=== PATIENT | female | born 1985 | race Caucasian/White ===

== ENCOUNTER 2020-08-03 11:40 | Outpatient (REF) | payer OTHER, SELFPAY ==
[2020-08-03 13:44] LABS: Alanine Aminotransferase 41 U/L (0-31); Albumin Level 4.7 g/dL (3.5-5.0); Alkaline Phosphatase 54 U/L (39-117); Anion Gap 13 (12-20); Aspartate Amino Transferase 22 U/L (5-31); Bilirubin Total 0.4 mg/dL (0.0-1.0); Blood Urea Nitrogen 15 mg/dL (9-16); Calcium 9.7 mg/dL (8.4-10.2); Carbon Dioxide 27 mmol/L (22-29); Chloride 106 mmol/L (96-108); Estimated Glomerular Filt Rate > 60; Glucose Random 81 mg/dL (60-115); Potassium 4.3 mmol/l (3.3-5.1); Sodium 142 mmol/L (135-145); Total Protein 7.8 g/dL (6.5-8.0)
[2020-08-04 08:13] LABS: HBS Num1 58.35 mIU/mL (0-7.99); HBc Num1 0.11 S/CO (0.00-0.79); HBsAGNum1 0.25 S/CO (0.00-0.99); Hepatitis A Antibody IgM 0.18 Index (0-0.79); Hepatitis B Core Antibody Nonreactive (Nonreactive); Hepatitis B Surface Antigen Negative (Negative); ~HepC Num1 0.08 S/CO (0.00-0.79); ~Hepatitis A Antibody IgM Nonreactive (Nonreactive); ~Hepatitis B Surface Antibody REACTIVE (Nonreactive); ~Hepatitis C Antibody Nonreactive (Nonreactive)
== END 2020-08-03 11:41 | disposition home or self-care (01) ==
LOC: HO.LAB 11:40
PROVIDERS: PCP Internal Medicine; Visit Provider Internal Medicine
DX: N30.00 Acute cystitis without hematuria (principal); R74.01 Elevation of levels of liver transaminase levels
CPT/HCPCS: 80053; 86704; 86706; 86709; 86803; 87086; 87088; 87186; 87340

== ENCOUNTER 2020-09-30 09:46 | Outpatient (REF) | payer OTHER, SELFPAY ==
--- NOTE | 2020-09-30 09:45 | EMG_ITS ---
Bilateral median and ulnar motor and sensory studies were performed. Bilateral radial sensory studies were performed and paraspinal muscles were tested. IMPRESSION: [id number] bilateral median neuropathy across carpal tunnel. MD AYDEN Pichardo/LUIS / [id number]
== END 2020-09-30 09:47 | disposition home or self-care (01) ==
LOC: HO.NEURO 09:46
PROVIDERS: Visit Provider Internal Medicine
DX: G56.03 Carpal tunnel syndrome, bilateral upper limbs (principal)
CPT/HCPCS: 95860; 95886; 95911

== ENCOUNTER 2021-03-18 09:13 | Outpatient (REF) | payer OTHER, SELFPAY ==
[2021-03-18 10:36] LABS: MANUAL DIFF FLAG NO
[2021-03-18 11:02] LABS: Basophils Percent Auto 0.4 % (0-2); Eosinophils Absolute Auto 0.2 X10*3/uL (0.0-0.4); Eosinophils Percent Auto 3.2 % (0-4); Hematocrit 38.9 % (37-47); Imm Gran Abs Auto 0.02 X10*3/uL (0.00-0.03); Imm Gran Pct Auto 0.3 % (0.0-0.4); Lymphocytes Absolute Auto 2.5 X10*3/uL (1.2-4.9); Lymphocytes Percent Auto 36.5 % (20-40); Mean Corpuscular HGB Conc 33.4 g/dl (31.0-35.0); Mean Corpuscular Hemoglobin 29.6 pg (27.0-33.0); Mean Corpuscular Volume 88.6 fL (80-98); Mean Platelet Volume 10.9 fL (9.4-12.3); Monocytes Absolute Auto 0.6 X10*3/uL (0.1-1.2); Monocytes Percent Auto 8.2 % (2-11); Neutrophils Absolute Auto 3.6 X10*3/uL (2.0-8.3); Neutrophils Percent Auto 51.4 % (45-73); Platelet Count 251 X10*3/uL (160-400); Red Blood Count 4.39 X10*6/uL (4.20-5.50); Red Cell Distribution Width 12.5 % (11.0-16.0)
[2021-03-18 11:06] LABS: Alanine Aminotransferase 71 U/L (0-31); Albumin Level 4.5 g/dL (3.5-5.0); Alkaline Phosphatase 49 U/L (39-117); Anion Gap 12 (12-20); Aspartate Amino Transferase 29 U/L (5-31); Bilirubin Total 0.4 mg/dL (0.0-1.0); Blood Urea Nitrogen 12 mg/dL (9-16); Calcium 9.6 mg/dL (8.4-10.2); Carbon Dioxide 24 mmol/L (22-29); Chloride 110 mmol/L (96-108); Cholesterol 154 mg/dL; Estimated Glomerular Filt Rate > 60; Glucose Random 90 mg/dL (60-115); HDL Cholesterol 61 mg/dL; LDL Cholesterol Calculated 85 mg/dl; Potassium 4.4 mmol/L (3.3-5.1); Sodium 142 mmol/L (135-145); Total Protein 7.5 g/dL (6.5-8.0); Triglycerides 44 mg/dL
[2021-03-19 09:06] LABS: Lyme Abs Screen <0.90 index
== END 2021-03-18 09:14 | disposition home or self-care (01) ==
LOC: HO.LAB 09:13
PROVIDERS: PCP Internal Medicine; Visit Provider Internal Medicine
DX: L53.2 Erythema marginatum (principal); R21 Rash and other nonspecific skin eruption
CPT/HCPCS: 36415; 80053; 80061; 85025; 86617; 86618

== ENCOUNTER 2022-04-20 10:40 | Outpatient (REF) | payer OTHER, SELFPAY ==
[2022-04-20 11:40] LABS: Estimated Average Glucose 85 mg/dL; Hemoglobin A1c % 4.6 %
[2022-04-20 12:16] LABS: Alanine Aminotransferase 122 U/L (0-31); Albumin Level 4.7 g/dL (3.5-5.0); Alkaline Phosphatase 59 U/L (39-117); Anion Gap 15 (12-20); Aspartate Amino Transferase 52 U/L (5-31); Bilirubin Total 0.6 mg/dL (0.0-1.0); Blood Urea Nitrogen 12 mg/dL (9-16); Calcium 9.7 mg/dL (8.4-10.2); Carbon Dioxide 24 mmol/L (22-29); Chloride 108 mmol/L (96-108); Estimated Glomerular Filt Rate > 60; Glucose Random 98 mg/dL (60-115); Potassium 4.5 mmol/L (3.3-5.1); Sodium 142 mmol/L (135-145); Total Protein 7.9 g/dL (6.5-8.0)
[2022-04-20 12:20] LABS: Thyroid Stimulating Hormone 1.39 uIU/mL (0.32-4.0)
[2022-04-20 14:21] LABS: CT PCR NOT DETECTED (Not Detect.); NG PCR NOT DETECTED (Not Detect.)
== END 2022-04-20 10:41 | disposition home or self-care (01) ==
LOC: HO.LAB 10:40
PROVIDERS: PCP Internal Medicine; Visit Provider Internal Medicine
DX: Z11.3 Encounter for screening for infections with a predominantly sexual mode of transmission (principal); E66.8 Other obesity; Z68.41 Body mass index [BMI] 40.0-44.9, adult; N30.00 Acute cystitis without hematuria
CPT/HCPCS: 80053; 83036; 84443; 87491; 87591

== ENCOUNTER 2022-10-30 09:54 | Outpatient (REF) | payer OTHER, SELFPAY ==
[2022-10-30 10:51] LABS: MANUAL DIFF FLAG NO
[2022-10-30 12:06] LABS: Basophils Absolute Auto 0.1 X10*3/uL (0.0-0.2); Basophils Percent Auto 0.6 % (0-2); Eosinophils Absolute Auto 0.1 X10*3/uL (0.0-0.4); Eosinophils Percent Auto 1.4 % (0-4); Hematocrit 40.9 % (37.0-47.0); Hemoglobin 13.9 g/dl (12.0-16.0); Imm Gran Abs Auto 0.01 X10*3/uL (0.00-0.03); Imm Gran Pct Auto 0.1 % (0.0-0.4); Lymphocytes Absolute Auto 3.7 X10*3/uL (1.2-4.9); Lymphocytes Percent Auto 47.4 % (20-40); Mean Corpuscular Hemoglobin 29.8 pg (27.0-33.0); Mean Corpuscular Volume 87.6 fL (80.0-98.0); Mean Platelet Volume 11.1 fL (9.4-12.3); Monocytes Absolute Auto 0.6 X10*3/uL (0.1-1.2); Monocytes Percent Auto 7.7 % (2-11); Neutrophils Absolute Auto 3.4 x10*3/uL (2.0-8.3); Neutrophils Percent Auto 42.8 % (45-73); Platelet Count 284 X10*3/uL (160-400); Red Blood Count 4.67 X10*6/uL (4.20-5.50); Red Cell Distribution Width 12.8 % (11.0-16.0); White Blood Count 7.8 X10*3/uL (4.8-10.8)
[2022-10-30 12:44] LABS: Alanine Aminotransferase 52 U/L (0-31); Albumin Level 4.6 g/dL (3.5-5.0); Alkaline Phosphatase 58 U/L (39-117); Anion Gap 15 (12-20); Aspartate Amino Transferase 27 U/L (5-31); Bilirubin Total 0.5 mg/dL (0.0-1.0); Blood Urea Nitrogen 14 mg/dL (9-16); Calcium 9.9 mg/dL (8.4-10.2); Carbon Dioxide 25 mmol/L (22-29); Chloride 107 mmol/L (96-108); Cholesterol 186 mg/dL; Estimated Glomerular Filt Rate > 60; Glucose Random 86 mg/dL (60-115); HDL Cholesterol 71 mg/dL; LDL Cholesterol Calculated 105 mg/dl; Potassium 4.6 mmol/L (3.3-5.1); Sodium 142 mmol/L (135-145); Total Protein 7.2 g/dL (6.5-8.0); Triglycerides 53 mg/dL
[2022-10-30 13:01] LABS: Thyroid Stimulating Hormone 1.36 uIU/mL (0.32-4.0)
[2022-10-31 10:19] LABS: CA-125 <3 U/mL (<35)
== END 2022-10-30 09:55 | disposition home or self-care (01) ==
LOC: HO.LAB 09:54
PROVIDERS: PCP Internal Medicine; Visit Provider Internal Medicine
DX: M54.89 Other dorsalgia (principal); Z85.40 Personal history of malignant neoplasm of unspecified female genital organ
CPT/HCPCS: 36415; 80053; 80061; 84443; 85025; 86304

== ENCOUNTER 2024-12-11 10:31 | Emergency (ER) | payer OTHER, SELFPAY ==
--- NOTE | ~2024-12-11 | CT_ITS ---
EXAMINATION: CT ABDOMEN AND PELVIS WITHOUT CONTRAST CLINICAL INFORMATION: Left flank pain. COMPARISON: June 29, 2017. TECHNIQUE: Multidetector volumetric imaging was performed from the superior aspect of the liver through the pubic symphysis. Sagittal and coronal reformatted images were obtained on the technologist's workstation. This CT examination was performed using dose optimization techniques as appropriate, variously including the following: *Automated exposure control *Adjustment of mA and/or kV according to patient size (this includes techniques or standardized protocols for targeted exams where dose is matched to indication/reason for exam; i.e. extremities or head) *Use of iterative reconstruction technique. DLP: 624 mGy centimeter. FINDINGS: Limited evaluation of the intra-abdominal organs and vascular structures due to lack of IV contrast. LUNG BASES: No acute airspace disease. Nonspecific 2 mm pulmonary nodules in the periphery of the left lower lung lobe. LIVER, GALLBLADDER, AND BILIARY TREE: Liver measures 17 cm. No pericholecystic fluid collection or gallbladder wall thickening. No intrahepatic or extrahepatic biliary ductal dilatation.. PANCREAS: No peripancreatic fluid collections. No main pancreatic ductal dilatation. SPLEEN: 9 cm. ADRENAL GLANDS: No nodular lesions. KIDNEYS AND URETERS: No hydronephrosis. No nephrolithiasis. BLADDER: Fluid-filled nearly collapsed. GASTROINTESTINAL TRACT: Abundant stool. No intestinal obstruction pattern. No pneumatosis intestinalis. No pneumoperitoneum. No ascites. I do not see the appendix, though no edema pattern in the mesocecum. ABDOMINAL WALL: No gross umbilical hernia. LYMPH NODES: No lymphadenopathy, retroperitoneal. VASCULAR: No aneurysm, abdominal aorta. PELVIC VISCERA: Inadequate evaluation. OSSEOUS STRUCTURES: Multilevel thoracolumbar spondylosis. Levoconvex curvature of the lower lumbar spine apex at L4. Calcifications in the posterior intervertebral discs L4-5. Spina bifida occulta, S1. CT/CT abdomen pelvis wo IV con IMPRESSION: No hydronephrosis or nephrolithiasis. Multilevel thoracolumbar spondylosis. Hepatomegaly, mild. Fleischner guidelines were followed. Electronically signed by: Aime Randall MD 12/11/2024 01:38 PM EDT
[2024-12-11 10:48] VITALS: BP 118/71; PULSE 63; RESP 16; TEMP 36.6; O2SAT 95; BMI 36.8
--- NOTE | 2024-12-11 10:48 | ED_ITS ---
HPI - General Adult General Chief complaint: Abdominal Pain Stated complaint: abd pain hx ovarian cancer Time Seen by Provider: 12/11/24 12:43 Source: patient Mode of arrival: ambulatory Limitations: no limitations History of Present Illness ED Provider: LILA CARPIO PA-C HPI narrative: 39 year old female with pmhx significant for ovarian cancer s/p oophorectomy and chemo in 2000 presents to the ED today for evaluation of left flank pain radiating to her left lower abdomen x1 week. Pain is 6/10 at present. She has been taking Aleve with improvement. Last dose around 0600 this morning. Admits to intermittent loose stools and constipation. Reports occasional nausea without vomiting. No nausea at present. She is eating on my entrance into room. No injury/ trauma to the back or abdomen. No recent travel outside the [place]. 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 Her last PET scan was a little over 1 year ago and was normal. Denies fever, chills, chest pain, sob, vomiting, melena/ hematochezia, dysuria, hematuria, constipation. Other than oophorectomy, no other abdominal surgeries. Related Data Allergies Allergy/AdvReac Type Severity Reaction Status Date / Time No Known Allergies Allergy Verified 12/11/24 10:51 Review of Systems 2 Review of Systems: Yes all other systems are reviewed and are negative PMFSH Past Medical History Attestation statement: The following information was validated with the patient. Source: old records reviewed and nursing notes reviewed Social History Social History Unable to assess alcohol history related to: Unknown Physical Exam ED Vital Signs: Vital Signs - 24 hr 12/11/24 10:48 Temperature 97.9 F Pulse Rate 63 Respiratory Rate 16 Blood Pressure 118/71 Pulse Oximetry 95 Oxygen Delivery Method Room Air BMI result Body Mass Index 36.8 vital signs stable, afebrile General: Well appearing, in no acute distress. Skin: Warm, dry, intact. No rashes or lesions. Head: Normocephalic, atraumatic. EENT: Hearing is intact b/l. Conjunctiva clear. PERRLA. EOM intact. Moist mucous membranes.? Neck: Supple without LAD Cardiac: Chest wall symmetric. RRR. Lungs: Normal respiratory effort without accessory muscle use. CTA bilaterally Abdomen: obese abdomen, nondistended, nontender to palpation, no rebound or guarding. no cvat. Back: No midline spinous or paraspinal tenderness. No step off deformity. Neuro: AOx3. Normal speech. Ambulating with steady gait. Course Course Course Narrative: This is a rapid medical exam performed by Marilee Lawrence NP: Additional HPI, ROS, PE not included below will be deferred to primary provider. Patient is a 39-year-old female with history of ovarian CA with bilateral oopherectomy presenting with left sided abdominal pain and left flank pain since . Also reports irregular bowel movements and nausea. Denies urinary symptoms. Plan: labs, UA Reevaluation(s) Reevaluation #1: CBC without leukocytosis or left shift. no anemia, h&h stable. chemistry without acute electrolyte abnormality requiring intervention. No LOYD. Liver function normal. ua without infection/ blood. CT abdomen pelvis wo IV con IMPRESSION: No hydronephrosis or nephrolithiasis. Multilevel thoracolumbar spondylosis. Hepatomegaly, mild. Pain improved with toradol. well appearing. tolerating PO. advised to f/u with PCP. Patient has remained stable throughout ED visit today. Discussed worrisome signs and symptoms and when to return to the ED. All questions answered at this time. Patient is agreeable with disposition and stable for discharge. Medications Administered Discontinued Medications Generic Name Dose Route Start Last Admin Trade Name Freq PRN Reason Stop Dose Admin Ketorolac Tromethamine 30 mg 12/11/24 13:11 12/11/24 13:24 Ketorolac Tromethamine 30 Mg/Ml Vial IM 12/11/24 13:12 30 mg ONCE ONE Administration Medical Decision Making Medical Decision Making [facility] Narrative: 39 year old female with pmhx significant for ovarian cancer s/p oophorectomy and chemo in 2000 presents to the ED today for evaluation of left flank pain radiating to her left lower abdomen x1 week. vital signs stable. afebrile. she is nontoxic appearing and in NAD. on exam, obese abdomen, nondistended, nontender, no rebound or guarding. normoactive bs x4. no cvat. Differential diagnosis includes, IBS, IBD, uti, renal colic, nephrolithiasis, gastroenteritis, gastritis, PUD, divertuculosis/ diverticulitis, constipation. Abdominal exam without peritoneal signs. No evidence of acute abdomen at this time. Well appearing. Moderate suspicion for acute hepatobiliary disease (including acute cholecystitis). Less likely to represent acute pancreatitis, perforated ulcer/ GI bleed, acute infectious processes (pneumonia, hepatitis, pyelonephritis), atypical appendicitis, vascular catastrophe, bowel obstruction or viscus perforation. Presentation not consistent with other acute, emergent causes of abdominal pain at this time. Plan for labs, UA, CT a/p, pain control, re-evaluation. Differential Diagnosis Differential Diagnoses: The differential diagnosis associated with the presentation includes as above. Admission/Observation not indicated. Lab Data MDM Lab Attestation statement: I reviewed the patient's lab results. as above. 12/11/24 11:16 12/11/24 11:16 Labs: Lab Results 12/11/24 12/11/24 Range/Units 11:16 13:24 WBC 7.3 (4.8-10.8) X10*3/uL RBC 4.47 (4.20-5.50) X10*6/uL Hgb 13.4 (12.0-16.0) g/dl Hct 38.8 (37.0-47.0) % MCV 86.8 (80.0-98.0) fL MCH 30.0 (27.0-33.0) pg MCHC 34.5 (31.0-35.0) g/dl RDW 12.5 (11.0-16.0) % Plt Count 272 (160-400) X10*3/uL MPV 10.4 (9.4-12.3) fL Immature Gran % (Auto) 0.3 (0.0-0.4) % Neut % (Auto) 47.0 (45-73) % Lymph % (Auto) 41.6 H (20-40) % [place] % (Auto) 8.0 (2-11) % Eos % (Auto) 2.3 (0-4) % Baso % (Auto) 0.8 (0-2) % Lymph # (Auto) 3.0 (1.2-4.9) X10*3/uL [place] # (Auto) 0.6 (0.1-1.2) X10*3/uL Eos # (Auto) 0.2 (0.0-0.4) X10*3/uL Baso # (Auto) 0.1 (0.0-0.2) X10*3/uL Abs Immat Gran (auto) 0.02 (0.00-0.03) X10*3/uL Absolute Neuts (auto) 3.4 (2.0-8.3) x10*3/uL Absolute Nucleated RBC 0.000 (0.0-0.012) X10*3/uL Nucleated RBC % (auto) 0.0 (0.0-0.2) /100WBC Sodium 143 (135-145) mmol/L Potassium 3.7 (3.3-5.1) mmol/L Chloride 110 H (96-108) mmol/L Carbon Dioxide 28 (22-29) mmol/L Anion Gap 9 L (12-20) BUN 13 (9-16) mg/dL Creatinine 0.68 (0.5-1.4) mg/dL Estim Creat Clear Calc 123.7 Estimated GFR > 60 Random Glucose 85 (60-115) mg/dL Calcium 9.6 (8.4-10.2) mg/dL Total Bilirubin 0.3 (0.0-1.0) mg/dL AST 16 (5-31) U/L ALT 17 (0-31) U/L Alkaline Phosphatase 66 (39-117) U/L Total Protein 7.2 (6.5-8.0) g/dL Albumin 4.4 (3.5-5.0) g/dL Urine Color Yellow Urine Appearance Clear Urine pH 5.5 (5.0-9.0) Ur Specific [place] 1.015 (1.005-1.025) Urine Protein Negative (Neg-Trace) mg/dL Urine Glucose (UA) Negative (Negative) mg/dL Urine Ketones Negative (Negative) mg/dL Urine Blood Negative (Negative) Urine Nitrite Negative (Negative) Ur Leukocyte Esterase Negative (Negative) Independent Interpretation I performed an independent interpretation of an: CT Scan Interpretation: CT a/p with stool throughout the colon, no obstruction. Radiology Impression Discussion of test interpretation with radiology: I have reviewed the radiologist's reading. Radiologist Impression: Procedure(s): CT abdomen pelvis wo IV con Accession Number(s): [id number] cc: Soraya Su MD; Lila Carpio~ Report Number: [id number]: Total DLP = 624.00 mGy-cm EXAMINATION: CT ABDOMEN AND PELVIS WITHOUT CONTRAST CLINICAL INFORMATION: Left flank pain. COMPARISON: June 29, 2017. TECHNIQUE: Multidetector volumetric imaging was performed from the superior aspect of the liver through the pubic symphysis. Sagittal and coronal reformatted images were obtained on the technologist's workstation. This CT examination was performed using dose optimization techniques as appropriate, variously including the following: *Automated exposure control *Adjustment of mA and/or kV according to patient size (this includes techniques or standardized protocols for targeted exams where dose is matched to indication/reason for exam; i.e. extremities or head) *Use of iterative reconstruction technique. DLP: 624 mGy centimeter. FINDINGS: Limited evaluation of the intra-abdominal organs and vascular structures due to lack of IV contrast. LUNG BASES: No acute airspace disease. Nonspecific 2 mm pulmonary nodules in the periphery of the left lower lung lobe. LIVER, GALLBLADDER, AND BILIARY TREE: Liver measures 17 cm. No pericholecystic fluid collection or gallbladder wall thickening. No intrahepatic or extrahepatic biliary ductal dilatation.. PANCREAS: No peripancreatic fluid collections. No main pancreatic ductal dilatation. SPLEEN: 9 cm. ADRENAL GLANDS: No nodular lesions. KIDNEYS AND URETERS: No hydronephrosis. No nephrolithiasis. BLADDER: Fluid-filled nearly collapsed. GASTROINTESTINAL TRACT: Abundant stool. No intestinal obstruction pattern. No pneumatosis intestinalis. No pneumoperitoneum. No ascites. I do not see the appendix, though no edema pattern in the mesocecum. ABDOMINAL WALL: No gross umbilical hernia. LYMPH NODES: No lymphadenopathy, retroperitoneal. VASCULAR: No aneurysm, abdominal aorta. PELVIC VISCERA: Inadequate evaluation. OSSEOUS STRUCTURES: Multilevel thoracolumbar spondylosis. Levoconvex curvature of the lower lumbar spine apex at L4. Calcifications in the posterior intervertebral discs L4-5. Spina bifida occulta, S1. CT/CT abdomen pelvis wo IV con IMPRESSION: No hydronephrosis or nephrolithiasis. Multilevel thoracolumbar spondylosis. Hepatomegaly, mild. Fleischner guidelines were followed. Electronically signed by: Aime Randall MD 12/11/2024 01:38 PM EDT Social Determinants Patient?s care significantly limited by Social Determinants of Health including: Other Social Determinant of Health Critical Care Time Critical Care Time Critical Care Time: No Discharge Plan Discharge Clinical Impression: Constipation Patient Disposition: Home, Self-Care Instructions: Constipation (ED), High Fiber Diet (ED) Additional Instructions: Your lab work up today is unremarkable. Your imaging shows that you are constipated. See home care instructions. There is no evidence of obstruction. I recommend using stool softeners such as colace 100 mg twice daily. In addition, take over the counter miralax 2-3 times daily until you begin having multiple large volume bowel movements. Follow up with your doctor in 2 weeks. Return with new or worsening symptoms. In the case of an emergency call 911. Referrals: Soraya Su MD [Primary Care Provider] - Interventions: ED Discharge Assessment Last Done: 12/11/24 14:52 Discharge Date/Time: 12/11/24 14:52 Print Language: Czech
[2024-12-11 11:19] LABS: MANUAL DIFF FLAG NO
[2024-12-11 11:21] LABS: Basophils Absolute Auto 0.1 X10*3/uL (0.0-0.2); Basophils Percent Auto 0.8 % (0-2); Eosinophils Absolute Auto 0.2 X10*3/uL (0.0-0.4); Eosinophils Percent Auto 2.3 % (0-4); Hematocrit 38.8 % (37.0-47.0); Hemoglobin 13.4 g/dl (12.0-16.0); Imm Gran Abs Auto 0.02 X10*3/uL (0.00-0.03); Imm Gran Pct Auto 0.3 % (0.0-0.4); Lymphocytes Percent Auto 41.6 % (20-40); Mean Corpuscular HGB Conc 34.5 g/dl (31.0-35.0); Mean Corpuscular Volume 86.8 fL (80.0-98.0); Mean Platelet Volume 10.4 fL (9.4-12.3); Monocytes Absolute Auto 0.6 X10*3/uL (0.1-1.2); Neutrophils Absolute Auto 3.4 x10*3/uL (2.0-8.3); Platelet Count 272 X10*3/uL (160-400); Red Blood Count 4.47 X10*6/uL (4.20-5.50); Red Cell Distribution Width 12.5 % (11.0-16.0); White Blood Count 7.3 X10*3/uL (4.8-10.8)
[2024-12-11 11:38] LABS: Alanine Aminotransferase 17 U/L (0-31); Albumin Level 4.4 g/dL (3.5-5.0); Alkaline Phosphatase 66 U/L (39-117); Anion Gap 9 (12-20); Aspartate Amino Transferase 16 U/L (5-31); Bilirubin Total 0.3 mg/dL (0.0-1.0); Blood Urea Nitrogen 13 mg/dL (9-16); Calcium 9.6 mg/dL (8.4-10.2); Carbon Dioxide 28 mmol/L (22-29); Chloride 110 mmol/L (96-108); Creatinine Clr Calc Pharmacy 123.7; Estimated Glomerular Filt Rate > 60; Glucose Random 85 mg/dL (60-115); Potassium 3.7 mmol/L (3.3-5.1); Sodium 143 mmol/L (135-145); Total Protein 7.2 g/dL (6.5-8.0)
[2024-12-11] MEDS: Ketorolac Tromethamine 30 MG/ML VIAL IM (13:24)
[2024-12-11 13:32] LABS: Appearance Urine Clear; Color Urine Yellow; Glucose Urine UA Negative (Negative); Leukocyte Esterase Urine Negative (Negative); Nitrite Urine Negative (Negative); PH 5.5 (5.0-9.0); Specific Gravity - Urine 1.015 (1.005-1.025); Urine Blood Negative (Negative); Urine Ketones Negative (Negative); Urine Protein Negative (Neg-Trace)
[2024-12-11 14:52] VITALS: BP 118/71; PULSE 63; RESP 16; TEMP 36.6; O2SAT 95
== END 2024-12-11 14:52 | disposition home or self-care (01) ==
PROVIDERS: Registered Nurse Emergency; Emergency Provider Emergency Medicine; PCP Internal Medicine
DX: K59.00 Constipation, unspecified (principal); R10.9 Unspecified abdominal pain
CPT/HCPCS: 36415; 74176; 80053; 81003; 85025; 96372; 99284; J1885

== ENCOUNTER → 2024-12-11 13:11 | Outpatient (BNV) | payer OTHER, SELFPAY | PROVIDERS: Emergency Provider Emergency Medicine; PCP Internal Medicine; Visit Provider Radiology Diagnostic Radiology | DX: R10.9 Unspecified abdominal pain (principal) | CPT/HCPCS: 74176 ==

== ENCOUNTER 2024-12-29 11:47 | Emergency (ER) | payer OTHER, SELFPAY ==
--- NOTE | ~2024-12-29 | XR_ITS ---
EXAMINATION: XR CHEST 2 VIEWS HISTORY: right sided chest pain to back COMPARISON: Comparison is made with the prior examination dated 01/09/2018. FINDINGS: PA and lateral views of the chest are submitted. The lungs are expanded and clear. There is no pleural effusion, pneumothorax, or pulmonary vascular congestion. The heart is normal in size. The bones are intact. XR/XR chest 2V IMPRESSION: No acute cardiopulmonary abnormality. Electronically signed by: Diego Haider MD 12/29/2024 01:03 PM EDT
[2024-12-29 11:58] VITALS: BP 126/93; PULSE 74; RESP 19; TEMP 36.6; O2SAT 93; BMI 37.7
--- NOTE | 2024-12-29 11:59 | ED.UPPEXIN ---
HPI - Extremity Injury (Upper) General Chief Complaint: Back Pain/Injury Stated Complaint: R Side Shoulder Pain No Injury Time Seen by Provider: 12/29/24 15:57 Source: patient Mode of arrival: ambulatory Limitations: no limitations History of Present Illness ED Provider: LILA CARPIO PA-C HPI narrative: 39 year old female with pmhx significant for ovarian cancer s/p oophorectomy and chemo in 2000 presents to the ED today for evaluation of atraumatic right shoulder pain x1 week. Pain starts in her right shoulder and extends to her right shoulder blade. Pain is worse with movement of her RUE along with palpation of the area. Relieved with rest. She has been trialing aleve and naproxen with minimal relief. Denies any blunt injury or trauma. Denies recent heavy lifting. Denies recent travel or long car rides. She does report intermittent chest pain ongoing for years. No new or worsening chest pain since onset of shoulder pain. Denies shortness of breath, WATTS, cough, hemoptysis, neck pain, numbness/tingling/weakness of UEs, LE pain/swelling. Related Data Previous Rx's ?Medication ?Instructions ?Recorded cyclobenzaprine 5 mg tablet 5 mg PO Q8H PRN muscle pain #7 tabs 12/29/24 lidocaine 5 % topical patch 1 patch topical DAILY #15 ea 12/29/24 (Lidoderm) Allergies Allergy/AdvReac Type Severity Reaction Status Date / Time No Known Allergies Allergy Verified 12/29/24 12:01 Review of Systems Review of Systems: Yes all other systems are reviewed and are negative PMFSH Past Medical History Attestation statement: The following information was validated with the patient. Source: old records reviewed and nursing notes reviewed Social History Social History Unable to assess alcohol history related to: Unknown Advance Directives: No Advance Directives Information Provided: Yes Do you have a plan to hurt others: No Plan Physical Exam Vital Signs: Vital Signs: Last Vital Signs Temp 98 F 12/29/24 16:08 Pulse 74 12/29/24 16:08 Resp 19 12/29/24 16:08 BP 126/93 H 12/29/24 16:08 Pulse Ox 93 12/29/24 16:08 O2 Del Method Room Air 12/29/24 16:08 BMI result Body Mass Index 37.7 hypertensive, vitals are otherwise wnl General: Well appearing, in no acute distress. Skin: Warm, dry, intact. No rashes or lesions. Head: Normocephalic, atraumatic. EENT: Hearing is intact b/l.PERRLA. EOM intact. Cardiac: Chest wall symmetric. RRR. + tender to palpation over right scapula. Reproducible with abduction of the right shoulder. Lungs: Normal respiratory effort without accessory muscle use. CTA bilaterally Back: No midline spinous or paraspinal tenderness. No step off deformity. Ext: Upper and lower extremities atraumatic, without tenderness, deformity, swelling or erythema Neuro: AOx3. Normal speech. Ambulating with steady gait. Psych: Appropriate mood and affect. Responds appropriately to questions. Course Course Course Narrative: This is a Rapid Medical Examination (RME) performed by Monse Carpio PA-C in triage. Full HPI, ROS, assessment and treatment plan per primary provider in the Main ED. 12/29/24 [id number] KEVON Nguyen Hx: 39 year old female with pmhx significant for ovarian cancer s/p oophorectomy and chemo in 2000 presents to the ED today here w/ atraumatic right shoulder blade pain x1 week. worse w/ movement and palpation. relieved at rest/ lying down. travels to her right chest. trialed aleve and naproxen w/o improvement. currently smokes tobacco. PE/vitals: +ttp over her right scapula Plan: ekg, labs, trop, cxr Reevaluation(s) Reevaluation #1: CBC without leukocytosis or left shift. No anemia. H&H stable. Chemistry without acute electrolyte abnormality requiring intervention. No LOYD. Liver function normal. Troponin undetectable. Given onset of symptoms and timing to ED, delta trop not warranted. Chest x-ray without infiltrate or consolidation. EKG showing normal sinus rhythm with a rate of 60 beats per minute, no acute ischemic changes or ST elevations. > PERC 0. PE unlikely, ddimer not warranted. Not hypoxic or tachycardic. > given reproducibility, likely musculoskeletal in etiology. Will trial lidocaine and Flexeril. These have been sent to her pharmacy. Patient has remained stable throughout ED visit today. Discussed worrisome signs and symptoms and when to return to the ED. All questions answered at this time. Patient is agreeable with disposition and stable for discharge. Medical Decision Making Medical Decision Making [facility] Narrative: 39 year old female with pmhx significant for ovarian cancer s/p oophorectomy and chemo in 2000 presents to the ED today for evaluation of atraumatic right shoulder pain x1 week. Hypertensive, vitals otherwise WNL. Not tachycardic or hypoxic. She was well-appearing, in no acute distress. Lungs are CTA bilaterally without rales rhonchi or wheezes. No respiratory distress or tripoding. There is reproducible tenderness over right scapula, no deformity or crepitus. Full ROM intact to right shoulder. Neurovascularly intact distally. Differential diagnosis includes MSK sprain/strain, bursitis, tendonitis, arthritis, pneumonia, viral syndrome, ACS, arrhythmia. Unlikely PE (PERC 0). Unlikely cauda equina, Guillain-Turner, epidural abscess. Plan for labs, trop, ekg, cxr, re-evaluation. Differential Diagnosis Differential Diagnoses: The differential diagnosis associated with the presentation includes as above Admission/Observation not indicated Lab Data [facility] Lab Attestation statement: I reviewed the patient's lab results. as above. 12/29/24 12:30 12/29/24 12:30 Labs: Lab Results 12/29/24 Range/Units 12:30 WBC 6.7 (4.8-10.8) X10*3/uL RBC 4.59 (4.20-5.50) X10*6/uL Hgb 13.6 (12.0-16.0) g/dl Hct 39.7 (37.0-47.0) % MCV 86.5 (80.0-98.0) fL MCH 29.6 (27.0-33.0) pg MCHC 34.3 (31.0-35.0) g/dl RDW 12.7 (11.0-16.0) % Plt Count 246 (160-400) X10*3/uL MPV 10.3 (9.4-12.3) fL Immature Gran % (Auto) 0.1 (0.0-0.4) % Neut % (Auto) 46.5 (45-73) % Lymph % (Auto) 41.4 H (20-40) % [place] % (Auto) 8.0 (2-11) % Eos % (Auto) 3.4 (0-4) % Baso % (Auto) 0.6 (0-2) % Lymph # (Auto) 2.8 (1.2-4.9) X10*3/uL [place] # (Auto) 0.5 (0.1-1.2) X10*3/uL Eos # (Auto) 0.2 (0.0-0.4) X10*3/uL Baso # (Auto) 0.0 (0.0-0.2) X10*3/uL Abs Immat Gran (auto) 0.01 (0.00-0.03) X10*3/uL Absolute Neuts (auto) 3.1 (2.0-8.3) x10*3/uL Absolute Nucleated RBC 0.000 (0.0-0.012) X10*3/uL Nucleated RBC % (auto) 0.0 (0.0-0.2) /100WBC Sodium 141 (135-145) mmol/L Potassium 3.7 (3.3-5.1) mmol/L Chloride 110 H (96-108) mmol/L Carbon Dioxide 25 (22-29) mmol/L Anion Gap 10 L (12-20) BUN 14 (9-16) mg/dL Creatinine 0.74 (0.5-1.4) mg/dL Estim Creat Clear Calc 110.8 Estimated GFR > 60 Random Glucose 94 (60-115) mg/dL Calcium 9.6 (8.4-10.2) mg/dL Magnesium 1.9 (1.6-2.6) mg/dL Total Bilirubin 0.2 (0.0-1.0) mg/dL AST 18 (5-31) U/L ALT 27 (0-31) U/L Alkaline Phosphatase 61 (39-117) U/L Troponin I High Sens < 2.7 (<3.5-17.0) ng/L Total Protein 7.2 (6.5-8.0) g/dL Albumin 4.4 (3.5-5.0) g/dL Independent Interpretation I performed an independent interpretation of an: EKG and Plain X-Ray Interpretation: ekg showing normal sinus rhythm cxr without infiltrate or consolidation Radiology Impression Discussion of test interpretation with radiology: I have reviewed the radiologist's reading. Radiologist Impression: Procedure(s): XR chest 2V Accession Number(s): [id number] cc: Soraya Su MD; Lila Carpio~ EXAMINATION: XR CHEST 2 VIEWS HISTORY: right sided chest pain to back COMPARISON: Comparison is made with the prior examination dated 01/09/2018. FINDINGS: PA and lateral views of the chest are submitted. The lungs are expanded and clear. There is no pleural effusion, pneumothorax, or pulmonary vascular congestion. The heart is normal in size. The bones are intact. XR/XR chest 2V IMPRESSION: No acute cardiopulmonary abnormality. Electronically signed by: Diego Haider MD 12/29/2024 01:03 PM EDT RP External Record Review External record reviewed: Inpatient record Prescription Management I considered prescription management with: Pain Medication and Other (flexeril) Social Determinants Patient?s care significantly limited by Social Determinants of Health including: Other Social Determinant of Health Critical Care Time Critical Care Time Critical Care Time: No Discharge Plan Discharge Clinical Impression: Pain in scapula Patient Disposition: Home, Self-Care Instructions: Cyclobenzaprine (By mouth) Additional Instructions: Your evaluation has shown no signs of medical conditions requiring emergent intervention at this time. I recommend you take 600mg ibuprofen every 6 hours or tylenol 650mg every 6 hours as needed for pain. If needed, you can alternate these medications so that you take one medication every 3 hours. For example, at noon take ibuprofen, then at 3pm take tylenol, then at 6pm take ibuprofen. Flexeril is a muscle relaxer. Take this at night as it makes you drowsy. Do not drive, drink alcohol, or operate machinery while taking it. Lidoderm patches are numbing patches. Apply to painful areas. Please schedule an appointment for follow-up with your primary care provider this week for further evaluation of your symptoms. Return to the Emergency Department if you experience worsening back pain, difficulty walking, fevers, numbness, tingling, incontinence, or any other concerning symptoms. In the case of an emergency call 911. Prescriptions: New cyclobenzaprine 5 mg tablet 5 mg PO Q8H PRN (Reason: muscle pain) Qty: 7 0RF lidocaine [Lidoderm] 5 % adhesive patch,medicated 1 patch topical DAILY Qty: 15 0RF Rx Instructions: leave on most painful area for up to 12 hrs Referrals: Soraya Su MD [Primary Care Provider] - Stand Alone Forms: Work/School Release Interventions: ED Discharge Assessment Last Done: 12/29/24 16:08 Discharge Date/Time: 12/29/24 16:09 Print Language: [place] Verdean
--- NOTE | 2024-12-29 12:01 | ECG_ITS ---
Test Reason : back pain Blood Pressure : */* mmHG Vent. Rate : 60 BPM Atrial Rate : 60 BPM P-R Int : 138 ms QRS Dur : 80 ms QT Int : 406 ms P-R-T Axes : 22 32 27 degrees QTcB Int : 406 ms Normal sinus rhythm Normal ECG No previous ECGs available Referred By: Lila Carpio Electronically Signed By: HERON THOMAS MD
[2024-12-29 12:34] LABS: MANUAL DIFF FLAG NO
[2024-12-29 12:35] LABS: Basophils Percent Auto 0.6 % (0-2); Eosinophils Absolute Auto 0.2 X10*3/uL (0.0-0.4); Eosinophils Percent Auto 3.4 % (0-4); Hematocrit 39.7 % (37.0-47.0); Hemoglobin 13.6 g/dl (12.0-16.0); Imm Gran Abs Auto 0.01 X10*3/uL (0.00-0.03); Imm Gran Pct Auto 0.1 % (0.0-0.4); Lymphocytes Absolute Auto 2.8 X10*3/uL (1.2-4.9); Lymphocytes Percent Auto 41.4 % (20-40); Mean Corpuscular HGB Conc 34.3 g/dl (31.0-35.0); Mean Corpuscular Hemoglobin 29.6 pg (27.0-33.0); Mean Corpuscular Volume 86.5 fL (80.0-98.0); Mean Platelet Volume 10.3 fL (9.4-12.3); Monocytes Absolute Auto 0.5 X10*3/uL (0.1-1.2); Neutrophils Absolute Auto 3.1 x10*3/uL (2.0-8.3); Neutrophils Percent Auto 46.5 % (45-73); Platelet Count 246 X10*3/uL (160-400); Red Blood Count 4.59 X10*6/uL (4.20-5.50); Red Cell Distribution Width 12.7 % (11.0-16.0); White Blood Count 6.7 X10*3/uL (4.8-10.8)
[2024-12-29 12:53] LABS: Alanine Aminotransferase 27 U/L (0-31); Albumin Level 4.4 g/dL (3.5-5.0); Alkaline Phosphatase 61 U/L (39-117); Anion Gap 10 (12-20); Aspartate Amino Transferase 18 U/L (5-31); Bilirubin Total 0.2 mg/dL (0.0-1.0); Blood Urea Nitrogen 14 mg/dL (9-16); Calcium 9.6 mg/dL (8.4-10.2); Carbon Dioxide 25 mmol/L (22-29); Chloride 110 mmol/L (96-108); Creatinine Clr Calc Pharmacy 110.8; Estimated Glomerular Filt Rate > 60; Glucose Random 94 mg/dL (60-115); Magnesium 1.9 mg/dL (1.6-2.6); Potassium 3.7 mmol/L (3.3-5.1); Sodium 141 mmol/L (135-145); Total Protein 7.2 g/dL (6.5-8.0)
[2024-12-29 13:01] LABS: Troponin-I High Sensitivity < 2.7 ng/L (<3.5-17.0)
--- OUTSIDE RECORDS SUMMARY | 2024-12-29 15:42 | XMS_ITS | Patient Health Record ---
Author Organization [facility] Address [address] [facility] [facility] [address] [place], [place] [id number] Care Team Providers Care Cross Country Coach Name Role Phone ARIN TYLER Unavailable [phone] Kandis Pop Unavailable [phone] Allergies Allergen (clinical drug ingredient) Drug/Non Drug Allergy documented on EMR Reaction Allergy Type Onset Date Status Seasonale Unknown Drug Allergy Active Results Component Value Reference Range Notes Chlamydia/GC Amplification-1 [id number] Reviewed date:05/02/2024 07:56:14 AM Interpretation:Negative Performing Lab:[facility] [place], [address], [address], [place], Phone - [phone], Director - MDMoore Notes/Report: Chlamydia trachomatis, ARTUR Negative Negative Neisseria gonorrhoeae, ARTUR Negative Negative Trich vag by [id number] Reviewed date:05/02/2024 07:56:06 AM Interpretation:Negative Performing Lab:[facility] [place], [address], [address], [place], Phone - [phone], Director - MDM[place]ore Notes/Report: Trich vag by ARTUR Negative Negative Urinalysis Reviewed date:01/04/2024 12:35:58 PM Interpretation:negative Performing Lab: Notes/Report: negative Leukocytes - Nitrates - Uro - Protein - pH 6.0 Blood - Spec [place] 1.025 Ketones - Bilirubin - Glucose - Wet Mount Reviewed date:01/04/2024 12:17:20 PM Interpretation:negative Performing Lab: Notes/Report: negative Clue Cells neg WBC few Hyphae neg Trichomonas neg pH 4.5 JEANA Prep neg whiff NuSwab VG+, Ade 6sp-1800 68 Reviewed date:01/08/2024 09:13:16 AM Interpretation:CT Performing Lab:[facility] [place], [address] [place] [address] Avenue, [place], Phone - [phone], Director - Aaliyah Notes/Report: Test(s) 312348-Gvzvbrt albicans, ARTUR; 638767-Sfdvpeq glabrata, ARTUR; 987175-C parapsilosis/tropicalis; 190862-Dmtarjw lusitaniae, ARTUR; 039192-Dqphaog krusei, ARTUR was developed and its performance characteristics determined by [facility]. It has not been cleared or approved by the Food and Drug Administration. Atopobium vaginae Low - 0 BVAB 2 Low - 0 Megasphaera 1 Low - 0 Calculate total score by adding the 3 individual bacterial vaginosis (BV) marker scores together. Total score is interpreted as follows: Total score 0-1: Indicates the absence of BV. Total score 2: Indeterminate for BV. Additional clinical data should be evaluated to establish a diagnosis. Total score 3-6: Indicates the presence of BV. . This test was developed and its performance characteristics determined by [facility]. It has not been cleared or approved by the Food and Drug Administration. Ade albicans, ARTUR Negative Negative Ade glabrata, ARTUR Negative Negative C parapsilosis/tropicalis Negative Negative Th is assay does not differentiate C. tropicalis and C. parapsilosis. Ade lusitaniae, ARTUR Negative Negative Ade krusei, ARTUR Negative Negative Trich vag by ARTUR Negative Negative Chlamydia trachomatis, ARTUR Positive Negative Neisseria gonorrhoeae, ARTUR Negative Negative Reason For Referral No Information Social History Sex Assigned At : Social History Observation Description Sex Assigned At Female Vital Signs Blood pressure diastolic 78 mm Hg 04/30/2024 Height 5ft 4in in 04/30/2024 Blood pressure systolic 124 mm Hg 04/30/2024 Weight 215.4 lbs 04/30/2024 BMI 36.97 kg/m2 04/30/2024 Encounters Encounter Location Date Provider Diagnosis [address] [id number] 01/04/2024 Kandis Pop Encounter for screening for infections with a predominantly sexual mode of transmission Z11.3 ; Vaginal discharge N89.8 and Painful Urination/Dysuria R30.[address] [id number] 01/08/2024 ARIN GABAI Chlamydial infection A74.9 and Counseling, unspecified Z71.9 [facility] [address] [facility] [address] [place], [place] [id number] 04/30/2024 ARINKELLE TUBBSI Encounter for screening for infections with a predominantly sexual mode of transmission Z11.3 ; Counseling, unspecified Z71.9 and Other problems related to lifestyle Z72.89 [facility] [address] [address] [place], [place] [id number] 01/08/2024 Kandis Pop Assessments Encounter Date Diagnosis (ICD Code) Assessment Notes Treatment Notes Treatment Clinical Notes Section Notes 01/04/2024 Encounter for screening for infections with a predominantly sexual mode of transmission (ICD-10 - Z11.3) Discussed STI risks, screening, and safe sex Need 2 out of 3 Sections from A-C Section B) Data (at least one of the following categories in this section) Category 1: (Choose 2 of the following): Order unique tests Section C) Risk Document low risk of morbidity/morta lity 01/08/2024 Counseling, unspecified (ICD-10 - Z71.9) Need 2 out of 3 Sections from A-C Section A) Problems (only need one from below) Two or more self-limited or minor programs One stable chronic illness Section B) Data (at least one of the following categories in this section) Category 1: (Choose 2 of the following): Order unique tests Review test results (each unique test counts as one) Category 2: Assessment requiring an independent historian Section C) Risk Document low risk of morbidity/morta lity 01/08/2024 Chlamydial infection (ICD-10 - A74.9) Discussed chlamydia diagnosis and treatment. Info given on modes of transmission. Encouraged condom use with vaginal, anal, and oral sex. Advised clt to refrain from sexual activity until they have completed treatment regimen, resolution of symptoms, and until sex partners have been treated. EPT prescription offered for all sex partners. Retesting advised in 3 months to identify re infection. Encouraged clt to monitor for symptom resolution or recurrent symptoms. Reviewed symptoms that would warrant further evaluation and follow-up (PID) Clt declines EPT rx at this time Need 2 out of 3 Sections from A-C Section A) Problems (only need one from below) Two or more self-limited or minor programs One stable chronic illness Section B) Data (at least one of the following categories in this section) Category 1: (Choose 2 of the following): Order unique tests Review test results (each unique test counts as one) Category 2: Assessment requiring an independent historian Section C) Risk Document low risk of morbidity/morta lity 04/30/2024 Encounter for screening for infections with a predominantly sexual mode of transmission (ICD-10 - Z11.3) Reviewed STI screening recommendations and available testing through [facility]. Testing ordered as noted per patient risks and preference. Encouraged safe sex practices. Advised to call for evaluation if any symptoms arise. Reviewed method of communicating results to patient. Spent ___ minutes doing the following: Chart Prep Obtaining/revie wing history Performing medically necessary exam Counseling/Coor dination of Care Documenting the visit Educating the patient Ordering medication/test /procedures Communication of test results Established Patient: 04147 10 Minutes 01/04/2024 Vaginal discharge (ICD-10 - N89.8) Need 2 out of 3 Sections from A-C Section B) Data (at least one of the following categories in this section) Category 1: (Choose 2 of the following): Order unique tests Section C) Risk Document low risk of morbidity/morta lity 04/30/2024 Counseling, unspecified (ICD-10 - Z71.9) Spent ___ minutes doing the following: Chart Prep Obtaining/revie wing history Performing medically necessary exam Counseling/Coor dination of Care Documenting the visit Educating the patient Ordering medication/test /procedures Communication of test results Established Patient: 57427 10 Minutes 01/04/2024 Painful Urination/Dysuri a (ICD-10 - R30.0) Need 2 out of 3 Sections from A-C Section B) Data (at least one of the following categories in this section) Category 1: (Choose 2 of the following): Order unique tests Section C) Risk Document low risk of morbidity/morta lity 04/30/2024 Other problems related to lifestyle (ICD-10 - Z72.89) Spent ___ minutes doing the following: Chart Prep Obtaining/revie wing history Performing medically necessary exam Counseling/Coor dination of Care Documenting the visit Educating the patient Ordering medication/test /procedures Communication of test results Established Patient: 88225 10 Minutes 01/04/2024 Other Reviewed normal wet mount and UA. Will send VV+. Reviewed vulvar hygeine measures. May consider boric acid suppositories over the weekend if desired. Reviewed method of communicating results. Thoroughly reviewed PID precautions and when to seek immediate care. Advised RTC for further eval and exam if testing normal and symptoms persist. Pt voiced understanding and agreed to plan and precautions Need 2 out of 3 Sections from A-C Section B) Data (at least one of the following categories in this section) Category 1: (Choose 2 of the following): Order unique tests Section C) Risk Document low risk of morbidity/morta lity Plan Of Treatment No Information Insurance Providers Payer Name Payer Address Payer Phone Subscriber Number Group Number Insured Name Patient Relationship to Insured Coverage Start Date Coverage End Date [place] ATT CLAIMS [address] [place] [id number] [phone] [id number] Brooklynn Chang Self - patient is the insured Medications Administered Medication Instructions Date of Administration Dosage Notes Rocephin / Ceftriaxone 11/18/2020 500 mg Reconstituted wi th 1% lidocaine Medical (General) History Medical History History ICD Code CT 2023 GC 3.4.2020 UTI ovarian cancer- bilat oophor ectomy at age 15 yrs. 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
--- OUTSIDE RECORDS SUMMARY | 2024-12-29 15:42 | XMS_ITS | Data Portability ---
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 Plan of Treatment Reminders Order Date Submit Date Provider Last Modified By Organization Details Last Modified Time Details Appointments None recorded. Lab varicella zoster virus IgG Ab, QN, IA, serum 2023 024 [facility], [address] [place] [address], [id number], 4 12:06:12 measles + mumps + rubella virus IgG panel, QN, serum or plasma 2023 024 [facility], [address] [place] [address], [id number], 4 14:07:03 hepatitis B surface Ab, quantitativ e, serum 2023 024 [facility], [address] [place] [address], [id number], 4 16:07:00 Mycobacteri um tuberculosi s stimulated gamma interferon, qual, blood 2023 024 [facility], [address] [place] [address], [id number], 4 06:08:00 urinalysis, dipstick 2022 023 [email or web address] [id number]_[facility], [address] [place] [address], [place], [address], 3 16:48:32 test, urine 2022 023 [email or web address] 21009_adela [facility]uller, [address] [place], [address], 3 16:48:33 vaginal pathogens panel, ARTUR+probe, vaginal fluid 2022 023 [place] [facility] [place], [address], 22:06:14 culture, urine 2022 023 [place] [facility], [address] [place] [address], [address], 06:08:09 Referral None recorded. Procedures None recorded. Surgeries None recorded. Imaging None recorded. Medication Orders None recorded. Patient TargetsNo targets recorded. Patient Instructions Encounter Date Encounter Id Patient Instructions Last Modified By Organization Details Last Modified Time 08/06/2023 [id number] vaginitis: care instructions [email or web address] Not available 08/06/2023 16:48:30 How can you care for yourself at home . Wash your vulva daily with water. You also can use a mild, unscented soap if you want. Do not use scented bath products. And do not use vaginal sprays or douches. Change out of wet or damp clothes as soon as possible. Wear cotton underwear. And avoid tight clothing that could increase moisture. Put a washcloth soaked in cool water on the area to relieve itching. Or you can take cool baths. If you have dryness because of menopause, use estrogen cream or pills that your doctor prescribes. Ask your doctor about when it is okay to have sex. Use a personal lubricant before sex if you have dryness. Examples are Astroglide, K-Y Jelly, and Wet Lubricant Gel. [email or web address] Not available 08/06/2023 16:48:28 Reason for Referral None Reported. Results Created Date Observation Date Name Description Value Unit Range Abnormal Flag Note LastModifiedBy Organization Detail LastModifiedTime 08/06/20 23 08/07/2023 URINE CULTU RE, ROUTI NE urine culture, routine FINAL REPORT Not Available [facility] ([facility]) [address] [facility], [place], [address], 08/08/2023 06:08:09 08/06/20 23 08/07/2023 URINE CULTU RE, ROUTI NE result 1 NO GROWTH Not Available [facility] ([facility]) [address] [facility], [place], [address], 08/08/2023 06:08:09 08/06/20 23 08/08/2023 NUSWA B VAGIN ITIS PLUS (VG+) atopobium vaginae HIGH - 2 score abnormal Not Available [facility] ([facility]) [address] [facility], [place], [address], 08/08/2023 22:06:14 08/06/20 23 08/08/2023 NUSWA B VAGIN ITIS PLUS (VG+) bvab 2 HIGH - 2 score abnormal Not Available [facility] ([facility]) [address] [facility], [place], [address], 08/08/2023 22:06:14 08/06/20 23 08/08/2023 NUSWA B VAGIN ITIS PLUS (VG+) megasphaera 1 HIGH - 2 score abnormal Calcu late total score by patel g the 3 indiv idual bacte rial vagin osis (BV) marke r score s toget her. Total score is inter prete d as follo ws: Total score 0-1: Indic ates the absen ce of BV. Total score 2: Indet ermin ate for BV. Addit ional clini lindsay data shoul d be evalu ated to estab rocio a diagn osis. Total score 3-6: Indic ates the prese nce of BV. This test was devel oped and its perfo rmanc e binh cteri stics deter mined by [facility]. It has not been clear ed or appro umesh by the Food and Drug Admin istra tion. Not Available [facility] ([facility]) [address] [facility], [place], [address], 08/08/2023 22:06:14 08/06/2008/08/2023 NUSWA B VAGIN ITIS PLUS (VG+) constance albicans, ARTUR POSITI VE negati ve abnormal Not Available [facility] ([facility]) [address] [facility], [place], [address], 08/08/2023 22:06:14 08/06/20 23 08/08/2023 NUSWA B VAGIN ITIS PLUS (VG+) constance glabrata, ARTUR NEGATI VE negati ve Not Available [facility] ([facility]) [address] [facility], [place], [address], 08/08/2023 22:06:14 08/06/2008/08/2023 NUSWA B VAGIN ITIS PLUS (VG+) trich vag by ARTUR NEGATI VE negati ve Not Available [facility] ([facility]) [address] [facility], [place], [address], 08/08/2023 22:06:14 08/06/20 23 08/08/2023 NUSWA B VAGIN ITIS PLUS (VG+) chlamydia trachomatis, ARTUR NEGATI VE negati ve Not Available [facility] ([facility]) [address] [facility], [place], [address], 08/08/2023 22:06:14 08/06/20 23 08/08/2023 NUSWA B VAGIN ITIS PLUS (VG+) neisseria gonorrhoeae, ARTUR NEGATI VE negati ve Not Available [facility] ([facility]) [address] [facility], [place], [address], 08/08/2023 22:06:14 08/06/20 23 08/06/2023 pregn thom test, urine Unknown Analyte negati ve Not Available yr [address], [place], [address], 08/06/2023 15:30:00 08/06/20 23 08/06/2023 pregn thom test, urine Unknown Analyte yes Not Available adela [address], [place], [address], 08/06/2023 15:30:00 08/06/20 23 08/06/2023 urina lysis , dipst ick Unknown Analyte Yellow Not Available adela [address] [place], [address], 08/06/2023 15:29:53 08/06/20 23 08/06/2023 urina lysis , dipst ick Unknown Analyte Clear Not Available adela [address] [place], [address], 08/06/2023 15:29:53 08/06/20 23 08/06/2023 urina lysis , dipst ick Unknown Analyte Negati ve Not Available maureen taylor [address], [place], [address], 08/06/2023 15:29:53 08/06/20 23 08/06/2023 urina lysis , dipst ick Unknown Analyte Negati ve Not Available maureen taylor [address] [place], [address], 08/06/2023 15:29:53 08/06/20 23 08/06/2023 urina lysis , dipst ick Unknown Analyte Negati ve Not Available maureen taylor [address], [place], [address], 08/06/2023 15:29:53 08/06/20 23 08/06/2023 urina lysis , dipst ick Unknown Analyte 1.025 Not Available adela [address] [place], [address], 08/06/2023 15:29:53 08/06/2008/06/2023 urina lysis , dipst ick Unknown Analyte Trace- intact Not Available maureen taylor [address] [place], [address], 08/06/2023 15:29:53 08/06/2008/06/2023 urina lysis , dipst ick Unknown Analyte 5.5 Not Available adela [address] [place], [address], 08/06/2023 15:29:53 08/06/2008/06/2023 urina lysis , dipst ick Unknown Analyte Negati ve Not Available [facility] [address] [place], [address], 08/06/2023 15:29:53 08/06/20 23 08/06/2023 urina lysis , dipst ick Unknown Analyte 0.2 E.U./d L Not Available [facility] [address] [place], [address], 08/06/2023 15:29:53 08/06/20 23 08/06/2023 urina lysis , dipst ick Unknown Analyte Negati ve Not Available [facility] [address], [address], 08/06/2023 15:29:53 08/06/20 23 08/06/2023 urina lysis , dipst ick Unknown Analyte Negati ve Not Available [facility] [address] [place], [address], 08/06/2023 15:29:53 02/05/20 24 02/06/2024 VARIC CHAD- ZOSTE R V AB, IGG varicella zoster IgG 1553 index immune >165 Negat lavelle <135 Equiv ocal 135 - 165 Posit lavelle >165 A posit lavelle resul t gener ally indic ates expos ure to the patho gen or admin istra tion of speci fic immun oglob ulins , but it is not indic ation of activ e infec tion or stage of disea se. Not Available [facility] ([facility]) [address] [facility], [place], [address], 02/06/2024 12:06:12 02/05/20 24 02/06/2024 MEASL ES/MU MPS/R UBELL A IMMUN ITY rubella antibodies, IgG 1.13 index immune >0.99 Non-i mmune <0.90 Equiv ocal 0.90 - 0.99 Immun e >0.99 Not Available [facility] ([facility]) [address] [facility], [place], [address], 02/06/2024 14:07:03 02/05/20 24 02/06/2024 MEASL ES/MU MPS/R UBELL A IMMUN ITY measles antibodies, IgG 15.5 AU/mL immune >16.4 below low normal A secon d sampl e shoul d be colle cted and teste d no less than 2-4 weeks . Negat lavelle <13.5 Equiv ocal 13.5 - 16.4 Posit lavelle >16.4 Prese nce of antib odies to Rubeo la is presu mptiv e evide nce of immun ity excep t when acute infec tion is suspe cted. Not Available [facility] ([facility]) [address] [facility], [place], [address], 02/06/2024 14:07:03 02/05/20 24 02/06/2024 MEASL ES/MU MPS/R UBELL A IMMUN ITY mumps abs, IgG 88.4 AU/mL immune >10.9 Negat lavelle <9.0 Equiv ocal 9.0 - 10.9 Posit lavelle >10.9 A posit lavelle resul t gener ally indic ates past expos ure to Mumps virus or previ ous vacci natio n. Not Available [facility] ([facility]) [address] [facility], [place], [address], 02/06/2024 14:07:03 02/05/20 24 02/06/2024 HEPAT ITIS B SURF AB QUANT hepatitis B surf Ab quant 63.1 mIU/m L immuni ty>9.9 Statu s of Immun ity Anti- HBs Level ----- ----- ----- --- ----- ----- ---- Incon siste nt with Immun ity 0.0 - 9.9 Consi stent with Immun ity >9.9 Eff ectiv e March 17, 2024 the refer ence inter tamia will be bear ing to: Immun ity >10 Not Available [facility] ([facility]) [address] [facility], [place], [address], 02/06/2024 16:07:00 02/05/20 24 02/07/2024 QUANT IFERO N-TB GOLD PLUS quantiferon incubation INCUBA TION PERFOR MED. Not Available [facility]) [address] [facility], [place], [address], 02/08/2024 06:08:00 02/05/20 24 02/07/2024 QUANT IFERO N-TB GOLD PLUS quantiferon criteria COMMEN T Quant iFERO N-TB Gold Plus is a quali tativ e indir ect test for M tuber culos is infec tion (incl uding disea se) and is inten ded for use in conju nctio n with risk asses sment , radio graph y, and other medic al and diagn ostic evalu ation s. The Quant iFERO N-TB Gold Plus resul t is deter mined by subtr actin g the Nil value from eithe r TB antig en (Ag) value . The Mitog en tube serve s as a contr ol for the test. Not Available [facility] ([facility]) [address] [facility], [place], [address], 02/08/2024 06:08:00 02/05/2002/07/2024 QUANT IFERO N-TB GOLD PLUS quantiferon TB1 Ag value 0.03 IU/mL Not Available [facility] ([facility]) [address] [place], [address], 02/08/2024 06:08:00 02/05/2002/07/2024 QUANT IFERO N-TB GOLD PLUS quantiferon TB2 Ag value 0.03 IU/mL Not Available [facility]) [address] [place], [address], 02/08/2024 06:08:00 02/05/2002/07/2024 QUANT IFERO N-TB GOLD PLUS quantiferon nil value 0.02 IU/mL Not Available [facility] ([facility]) [address] [place], [address], 02/08/2024 06:08:00 02/05/20 24 02/07/2024 QUANT IFERO N-TB GOLD PLUS quantiferon mitogen value >10.00 IU/mL Not Available [facility] ([facility]) [address] [place], [address], 02/08/2024 06:08:00 02/05/2002/07/2024 QUANT IFERO N-TB GOLD PLUS quantiferon- TB gold plus NEGATI VE negati ve No respo nse to M tuber culos is antig ens detec julieta. Infec tion with M tuber saundraos is is unlik micki, but high risk indiv idual s shoul d be consi dered for addit ional testi ng (ATS/ IDSA/ CDC Clini lindsay Pract ice Guide lines , 2017) . The refer ence range is an Antig en minus Nil resul t of <0.35 IU/mL . Chemi lumin escen ce immun oassa y metho dolog y Not Available [facility] ([facility]) [address] [place], [address], 02/08/2024 06:08:00 Result Notes None recorded. 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 Procedures Surgical History Date Name Laterality Status Provider Name and Address Organization Details Recorded Time 02/05/20 [facility]-UDS Send Out Template NON DOT completed JOLIE MORENO PA - [facility] 02/05/2024 11:39:16 02/05/20 OC - Venipuncture Template completed JOLIE MORENO PA - [facility] 02/05/2024 11:40:40 Imaging Results None recorded. Procedure Notes None recorded. Medical Equipment None Reported. Allergies No known drug allergies Medications Name Sig Start Date Stop Date Status Note LastModified by Organization Details LastModified Time metronidazo le 0.75 % (37.5 mg/5 gram) vaginal gel Insert 1 applicato rful every day by vaginal route for 7 days. 2022 active Not Available Not Available Not Avai lable methocarbam ol 750 mg tablet TAKE 1 TABLET BY MOUTH EVERY 6 HOURS NEEDED FOR MUSCLE SPASM 08/06 completed Not Available Not Available Not Available dexamethaso ne 4 mg tablet TAKE 1 TABLET BY MOUTH TWICE A DAY FOR 5 DAYS THEN ONCE DAILY DIRECTED 08/06 completed Not Available Not Available Not Available ketoconazol e 2 % topical cream APPLY TO AFFECTED AREA TWICE A DAY 08/06 completed Not Available Not Available Not Available Diflucan 200 mg tablet Take 1 tablet every week by oral route for 14 days. 2022 active Not Available Not Available Not Avai lable naproxen 500 mg tablet TAKE 1 TABLET BY MOUTH TWICE A DAY 08/06 completed Not Available Not Available Not Available oxycodone 5 mg tablet TAKE 1 TABLET BY MOUTH 4 TIMES DAILY NEEDED FOR PAIN 08/06 completed Not Available Not Available Not Available Vitals Date Recorded Body height Body mass index (BMI) Body weight Respiratory rate Body temperature Heart rate Oxygen saturation Oxygen saturation in Arterial blood by Pulse oximetry Systolic blood pressure Diastolic blood pressure Provider Name and Address Organization Details Last Updated DateTime 3 157.48 cm 42.1 kg/m2 972280. 25 g 16 /min 98.3 [degF] 75 /min 95 % 95 % 112 mm[Hg] 77 mm[Hg] Qing LUND - [facility] 15:32:04 Social History Question Answer Notes LastModified by Organizat ion Details LastModified Time Tobacco Smoking Status Never Smoker Qing christensen PA - [facility] 08/06/2023 15:28:40 What Is Your Level Of Alcohol Consumption? None [email or web address] Information not available 08/06/2023 Which Illicit Or Recreational Drugs Have You Used? Marijuana [email or web address] Information not available 08/06/2023 Have You Had A Flu Shot This Season? No Information not available 08/06/2023 What Was The Date Of Your Most Recent Tobacco Screening? 08/06/2023 [email or web address] Information not available 08/06/2023 Do You Use Any Illicit Or Recreational Drugs? Yes [email or web address] Information not available 08/06/2023 Have You Recently Traveled Abroad? No [email or web address] Information not available 08/06/2023 Sex: Unknown Functional Status None recorded. Mental Status None recorded. Family History Relationship Description Onset Age of this Age Resolved Age Notes LastModified by Organization Details LastModified Time Father No current problems or disability [email or web address] Not available 08/06 15:28:05 Mother No current problems or disability [email or web address] Not available 08/06 15:28:05 Medical History No medical history recorded. Gynecological History Statement/Question Response Date of LMP 11/14/2020 Is there any chance of ? No LMP Approximate Obstetrics History GPAL:G 0 P 0 0 0 0 Immunizations Vaccine Type Date Status Note Provider Nam e and Address Organization Details Recorded Time COVID-19, mRNA, LNP-S, PF, 100 mcg/0.5mL dose or 50 mcg/0.25mL dose 01/21/2021 completed Qing christensen PA - [facility] 08/06/2023 15:26:35 COVID-19, mRNA, LNP-S, PF, 100 mcg/0.5mL dose or 50 mcg/0.25mL dose 02/21/2021 completed Qing christensen, PA - [facility] 08/06/2023 15:26:35 COVID-19, mRNA, LNP-S, PF, 100 mcg/0.5mL dose or 50 mcg/0.25mL dose 07/13/2021 completed Qing christensen, PA - [facility] 08/06/2023 15:26:35 COVID-19, mRNA, LNP-S, bivalent, PF, 50 mcg/0.5 mL or 25mcg/0.25 mL dose 09/21/2022 completed Qing christensen, PA - [facility] 08/06/2023 15:26:35 Past Encounters Encounter ID Performer Location Encounter Start Date Encounter Closed Date Diagnosis/Indication Diagnosis SNOMED-CT Code Diagnosis ICD10 Code Diagnosis Note [id number] 21003_[facility] [address] [place] [address] 01/31/2018 13:27:13 01/31/2018 15:19:12 [id number] [place] [address]_Had [facility] [address] [place] [address] 08/06/2023 14:21:13 08/06/2023 16:49:24 Acute vaginitis 57933983 N76.0 vaginitis is soreness or infection of the vagina. This common problem can cause itching and burning. And it can cause a change in vaginal discharge. Sometimes it can cause pain during sex. Vaginitis may be caused by bacteria, yeast, or other germs. Some infections that cause it are caught from a sexual partner. Bath products, spermicide s, and douches can irritate the vagina too. This problem can also happen during and after menopause. A drop in estrogen levels during this time can cause dryness, soreness, and pain during sex. Your doctor can give you medicine to treat vaginitis. And home care may help you feel better. For certain types of infections , your sex partner(s) must be treated too. [id number] KEVON TOURE [address] [address] 02/05/2024 11:16:40 02/05/2024 13:41:22 History and physical examination, occupation 769334714 Z02.1 Health Concerns Section Related Observation LastModified by Organization Detai ls LastModified Time None Recorded Concern Status LastModified by Organization Details LastModified Time None Recorded Advance Directives Directive None Recorded Payers Encounter Date Sequence Insurance Name Policy Number Policy Juarez Covered Member ID Juarez Member ID Guarantor Name 08/06/2023 1 [facility] [id number] Brooklynn Chang [id number] Brooklynn Chang 02/05/2024 [facility] SCREEN E SCREEN Brooklynn Chang Notes Date Note Type Note Provider Name and Address Organization Details Recorded Time 08/06/2023 text/html Abdominal Pain UCReported bypatient.source of patient informationpatien t; Patient arrived at Urgent Care ambulatory Location:suprapub ic Quality:pain;cram ping;dull Severity:mild Duration:intermit tent Onset/Timing:bett er Context:no travel Modifying Factors:laying down Associated Symptoms:no fever; no chills; no blood in the urine; no heartburn; no shortness of breath; no change in bowel/bladder habits Other:denies possible ; sexually active Presents with lower back and abdominal pain that comes and goes, yellow discharge, vaginal itching x2 days possible exposure to STI. new partner, sex without condom. Joy Rolon NP [address] [place], [address], PA - [facility] 08/06/2023 16:59:21 OBGyn Episode No OBEpisode recorded.
--- OUTSIDE RECORDS SUMMARY | 2024-12-29 15:42 | XMS_ITS ---
Author Organization [facility] Address [address] [place] [address] [address] [place], [place] [phone] Care Team Providers Care Change Agent Name Role Phone ARLEYMITZI RomanCARI Unavailable [phone] Allergies Allergen (clinical drug ingredient) Drug/Non Drug Allergy documented on EMR Reaction Allergy Type Onset Date Status Seasonale Unknown Drug Allergy Active Results Component Value Reference Range Notes Chlamydia/GC Amplification-1 [id number] Reviewed date:05/02/2024 07:56:14 AM Interpretation:Negative Performing Lab:[facility] [place], [address], [address], [employer], Phone - [phone], [facility] Notes/Report: Chlamydia trachomatis, ARTUR Negative Negative Neisseria gonorrhoeae, ARTUR Negative Negative Trich vag by [id number] Reviewed date:05/02/2024 07:56:06 AM Interpretation:Negative Performing Lab:[facility] [place], [address], [address], [employer], Phone - [phone], [facility] Notes/Report: Trich vag by ARTUR Negative Negative REASON FOR VISIT STI screening Social History Sex Assigned At : Social History Observation Description Sex Assigned At Female Vital Signs Blood pressure systolic 124 mm Hg 04/30/20 24 Blood pressure diastolic 78 mm Hg 024 Height 5ft 4in in 04/30/2024 Weight 215.4 lbs 04/30/2024 BMI 36.97 kg/m2 04/30/2024 Encounters Encounter Location Date Provider Diagnosis [facility] [address] [place], [place] [phone] 04/30/2024 CARI LINDSAY Encounter for screening for infections with a predominantly sexual mode of transmission Z11.3 ; Counseling, unspecified Z71.9 and Other problems related to lifestyle Z72.89 Assessments Encounter Date Diagnosis (ICD Code) Assessment Notes Treatment Notes Treatment Clinical Notes Section Notes 04/30/2024 Encounter for screening for infections with a predominantly sexual mode of transmission (ICD-10 - Z11.3) Reviewed STI screening recommendations and available testing through [facility]. Testing ordered as noted per patient risks and preference. Encouraged safe sex practices. Advised to call for evaluation if any symptoms arise. Reviewed method of communicating results to patient. Spent ___ minutes doing the following: Chart Prep Obtaining/revie wing history Performing medically necessary exam Counseling/Coor dination of Care Documenting the visit Educating the patient Ordering medication/test /procedures Communication of test results Established Patient: 95212 10 Minutes 04/30/2024 Counseling, unspecified (ICD-10 - Z71.9) Spent ___ minutes doing the following: Chart Prep Obtaining/revie wing history Performing medically necessary exam Counseling/Coor dination of Care Documenting the visit Educating the patient Ordering medication/test /procedures Communication of test results Established Patient: 63937 10 Minutes 04/30/2024 Other problems related to lifestyle (ICD-10 - Z72.89) Spent ___ minutes doing the following: Chart Prep Obtaining/revie wing history Performing medically necessary exam Counseling/Coor dination of Care Documenting the visit Educating the patient Ordering medication/test /procedures Communication of test results Established Patient: 53681 10 Minutes Plan Of Treatment Treatment Notes Assessment Notes Encounter for screening for infections with a predominantly sexual mode of transmission Reviewed STI screening recommendations a nd available testing through [facility]. Testing ordered as noted per patient risks and preference. Encouraged safe sex practices. Advised to call for evaluation if any symptoms arise. Reviewed method of communicating results to patient. Next Appt Details Follow Up: prn, Reason: Progress Notes * LUPIS BrooklynnDOB:1985 ([age] yo F)Acc No.[id number]:04/30/2024 Progress Notes Patient:?Brooklynn BAUGH Provider:?Cari Lindsay NP :1985???Age:38 Y???Sex:Female D ate:04/30/2024 Address:[address] [place], [place] [id number] Subjective: * Chief Complaints: * ???STI screening * HPI: ???Visit Narrative:? Clt presenting for chlamydia re test, treated 12/2023. Partner was also treated at that time, they abstained x 7 days. Denies concern of re exposure, denies any new sexual partners since treatment. Declines HIV and RPR today. ?Reason for the visit:?retesting?.?Current form of control:?condoms?.?Presenting Symptoms:?none?.?LMP:?none x few yrs due to ovarian cancer is supposed to be on estrogen but does not take?.?Last date of UPI:?04/28/24.?clt here to retest today denies sxs today. * Medical History:? 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 control:?condoms.?Last pap smear date:?, .?Periods:?Amenorrhea due to oophorectomy.?Sexual activity:?currently sexually active, with men.?Sexually Transmitted Diseases (STDs):?Chlamydia, Gonorrhea, Trichomoniasis (Trich).?Unprotected sex in the last 5 days?:?yes.?Unprotected sex in the past 10 days?:?yes.? * OB History:?Total pregnancies:?0.? * Surgical History:?Oophorecto my age 15 yrs * Hospitalization/Major Diagno stic Procedure:?see above hx * Family History:? diabetes hbp. * Social History:?Food Access:?Food Access?The Client's current access to food is?Secure Food Access ???Housing:?Housing?The client's current living situation is:?stable housing ???Reproductive Life Plan:?Reproductive Life Plan?Do you want to have children??No, I don't want to have children ???Sexual History:?Sexual History?Sexual History Reviewed:?Partners, Practices, Protection/Past STIs, Prevention of ?Currently sexually active??Yes ?Sexually active with:?Men ?Number of male partners?1 ?Your sexual activities include:?oral intercourse, vaginal intercourse ?Reviewed types of EC??Yes ?Have you/your partner(s) ever used EC??No ?Offered client EC??No ?Do you use condoms??Yes ?Condoms are used:?regularly ?Number of partners in past 3 months:?1 ?Number of partners in past year:?3 ?Does your partner(s) currently have any STIs??No ???HIV Risk Assessment:?Additional Questions?Is an HIV Risk Assessment being conducted??Yes ?Have you been tested for HIV before??Yes ?Did you have a blood transfusion prior to 1985??No ?Do you have an unlicensed body piercing or tattoo??Yes ???PrEP for HIV:?PrEP for HIV?Is the client interested in beginning/continuing PrEP for HIV??No ???Relationships:?Relationships?Has the client experienced any of the following:?Client has never experienced harmful relationships ???Human Trafficking:?Human Trafficking?Experienced:?No ???Tobacco Use:?Tobacco Use?Do you/have you used tobacco??Yes, currently when she drinks ?Tobacco Smoking Status?Current some day smoker ???Drugs/Alcohol:?Drug/Alcohol Use?Do you or have you used drugs??Yes, currently ?By what route are you taking drugs? Please check all that apply:?Smoking ?Which drug(s) do you smoke??Marijuana ?Do you want to quit drugs??No ?Do you or have you used alcohol??Yes, currently ???Counseling Provided:?Counseling Provided?Please indicate the length of time, in minutes, that counseling was provided.?5 ?Counseling Was Provided By:?joe * Medications:?DiscontinuedDox ycycline Monohydrate 100 MG Capsule 1 capsule Orally Twice a day Medication List reviewed and reconciled with the patientDiscontinued Doxycycline Monohydrate 100 MG Capsule 1 capsule Orally Twice a day Medication List reviewed and reconciled with the patient * Allergies:?Seasonaleno[Aller gies Verified] Objective: * Vitals:?BP:124/78mm Hg, Ht: 5ft 4in, Wt:215.4lbs, BMI:36.97Index, Ht-cm: 162.56, Wt-k.7. * Examination: ???General Examination: ?GENERAL APPEARANCE:?normal, well developed, well nourished.?PSYCH:?alert, oriented.? Assessment: * Assessment: 1.?Encounter for screening f or infections with a predominantly sexual mode of transmission - Z11.3 (Primary)???2.?Counseling, unspecified - Z71.9???3.?Other problems related to lifestyle - Z72.89??? Spent ___ minutes doing the following: Chart Prep Obtaining/reviewing history Performing medically necessary exam Counseling/Coordination of Care Documenting the visit Educating the patient Ordering medication/test/procedures Communication of test results Established Patient: 83317 10 Minutes Plan: * Treatment: * Procedure Codes:? * Follow Up:?prn * Billing Information: * Visit Code:? 54758 Existing - Minimal Complexity (IN USE). * Procedure Codes:? * Sign off status: Completed true * Provider:Oumou Lindsay NP Date:? 024 Generated for Braden austin/Da/Lolisransmitting on:?12/29/2024 03:42 PM EDT History and Physical Notes * HPI (History of Present Illness) Category Sub-Category Detail Notes Category Not es Visit Narrative Reason for the visit: retesting clt here to retest today denies sxs today Current form of control: condoms Presenting Symptoms: none LMP: none x few yrs due t o ovarian cancer is supposed to be on estrogen but does not take Last date of UPI: 04/28/24 Examination Category Sub-Category Detail Notes Category Not es General Examination GENERAL APPEARANCE: normal, well developed, well nourished PSYCH: alert, oriented
--- OUTSIDE RECORDS SUMMARY | 2024-12-29 15:42 | XMS_ITS ---
Author Organization [facility] Address [address] [place] [phone] Care Team Providers Care Bioengineer Name Role Phone Kandis Pop Unavailable [phone] REASON FOR VISIT Positive results Social History Sex Assigned At : Social History Observation Description Sex Assigned At Female Encounters Encounter Location Date Provider Diagnosis [facility] [address] [phone] 01/08/2024 Kandis Pop Plan Of Treatment No Information Progress Notes * Brooklynn BAUGHDOB:1985 ([age] yo F)Acc No.[id number]:01/08/2024 Patient:?LUPIS Brooklynn :1985???Age:38 Y???Sex:Female Address:[address] [place] [address] [address], [place], [phone] * true * Date:? Generated for Braden austin/Da/eTransmitting on:?12/29/2024 03:41 PM EDT
--- OUTSIDE RECORDS SUMMARY | 2024-12-29 15:42 | XMS_ITS ---
Author Organization [facility] Address [address] [place] [phone] Care Team Providers Care Uat Tester Name Role Phone CARI LINDSAY Unavailable [phone] Allergies No Known Allergies REASON FOR VISIT discuss results, Treatment for Chlamydia Medications Medication SIG (Take, Route, Frequency, Duration) Notes Start Date End Date Status Doxycycline Monohydrate 100 MG 1 capsule Orally Twice a day for 7 day(s) 01/08/2024 Active Social History Sex Assigned At : Social History Observation Description Sex Assigned At Female Encounters Encounter Location Date Provider Diagnosis [facility] [address] [facility] [address] [place], [place] [phone] 01/08/2024 CARI LINDSAY Chlamydial infection A74.9 and Counseling, unspecified Z71.9 Assessments Encounter Date Diagnosis (ICD Code) Assessment Notes Treatment Notes Treatment Clinical Notes Section Notes 01/08/2024 Chlamydial infection (ICD-10 - A74.9) Discussed [...] Section C) Risk Document low risk of morbidity/mort ality 01/08/2024 Counseling, unspecified (ICD-10 - Z71.9) Need [...] Section C) Risk Document low risk of morbidity/mort ality Plan Of Treatment Medication Medication Name Sig Start Date Stop Date Notes Doxycycline Monohydrate 100 MG 1 capsule Orally Twice a day for 7 day(s) 01/08/2024 Treatment Notes Assessment Notes Chlamydial infection Discussed chlamydia diagnosis and treatment. Info given [...] Clt declines EPT rx at this time Next Appt Details Follow Up: 3 Months, Reason: Progress Notes * Brooklynn BAUGHDOB:1985 ([age] yo F)Acc No.[id number]:01/08/2024 Patient:?Brooklynn BAUGH Provider:?Cari Lindsay NP :1985???Age:38 Y???Sex:Female D ate:01/08/2024 Address:[address] [place] [address] [id number] Subjective: * Chief Complaints: * ???Discuss resultsTreatment for Chlamydia * HPI: ???Visit Narrative:?Current form of control:?condoms?.?Presenting Symptoms:?discharge, strong odor to urine, discomfort when urinating, pelvic discomfort during sex.?LMP:?no menses x3 years?.?Last date of UPI:?12/30.?Other Notes for the Clinician:?TC from clt regarding results. Clt states she saw her results on portal and would like to have visit with clinician to speak about results and tx. results already reviewed by assigned clinician.? * ROS:?General/Constitutional:?Denies?Chills.?Denies?Fever.?Gastrointestinal:?Denies?Abdominal pain.?Vaginal/Breast/ Control FU:?Denies?Painful intercourse.?Genitourinary:?Denies?Painful urination.? * Medical History:? 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 Please check all that apply:?Smoking ?Which drug(s) do you smoke??Marijuana ?Do you want to quit drugs??No ?Do you or have you used alcohol??No ???Counseling Provided:?Counseling Provided?Please indicate the length of time, in minutes, that counseling was provided.?5 ?Counseling Was Provided By:?naoriv * Medications:?None * Allergies:?N.K.D.A.no[Allerg ies Verified] Objective: * Vitals:? * Examination: ???General Examination: ?GENERAL APPEARANCE:?in no acute distress.?NEUROLOGIC:?alert and oriented.? Assessment: * Assessment: 1.?Chlamydial infection - A7 4.9 (Primary)?2.?Counseling, unspecified - Z71.9? Need 2 out of 3 Sections fro m A-C Section A) Problems (only need one [...] Section C) Risk Document low risk of morbidity/mortality. Plan: * Treatment: * Procedure Codes:? * Follow Up:?3 Months * Billing Information: * Visit Code:? 81082 Existing - Low Complexity (IN USE). * Procedure Codes:? * Sign off status: Completed true * Provider:?Cari Lindsay NP Date:? 024 Generated for Braden austin/Da/Salvadorsmitting on:?12/29/2024 03:42 PM EDT History and Physical Notes * HPI (History of Present Illness) Category Sub-Category Detail Notes Category Not es Visit Narrative Current form of control: condoms Presenting Symptoms: discharge, strong o raul to urine, discomfort when urinating, pelvic discomfort during sex Other Notes for the Clinician: TC from praneeth regarding results. Clt states she saw her results on portal and would like to have visit with clinician to speak about results and tx. results already reviewed by assigned clinician LMP: no menses x3 years Last date of UPI: 12/30 Examination Category Sub-Category Detail Notes Category Not es General Examination GENERAL APPEARANCE: in no acute di stress NEUROLOGIC: alert and oriented
[2024-12-29 16:08] VITALS: BP 126/93; PULSE 74; RESP 19; TEMP 36.6; O2SAT 93
== END 2024-12-29 16:09 | disposition home or self-care (01) ==
PROVIDERS: Physician Assistant Medical; Emergency Provider Emergency Medicine Emergency Medical Services; PCP Internal Medicine
DX: M25.511 Pain in right shoulder (principal); M54.50 Low back pain, unspecified; R07.89 Other chest pain; Z79.899 Other long term (current) drug therapy
CPT/HCPCS: 36415; 71046; 80053; 83735; 84484; 85025; 93005; 99283

== ENCOUNTER → 2024-12-29 12:01 | Outpatient (BNV) | payer OTHER, SELFPAY | PROVIDERS: PCP Internal Medicine; Visit Provider Radiology Diagnostic Radiology | DX: R07.89 Other chest pain (principal) | CPT/HCPCS: 71046 ==

== ENCOUNTER → 2024-12-29 12:01 | Outpatient (BNV) | payer OTHER, SELFPAY | PROVIDERS: PCP Internal Medicine; Visit Provider Internal Medicine Cardiovascular Disease | DX: M54.9 Dorsalgia, unspecified (principal) | CPT/HCPCS: 93010 ==

== ENCOUNTER 2025-07-15 09:18 | Outpatient (REF) | payer OTHER, SELFPAY ==
[2025-07-15 09:28] LABS: MANUAL DIFF FLAG NO
[2025-07-15 09:54] LABS: Hematocrit 41.4 % (37.0-47.0); Hemoglobin 13.8 g/dl (12.0-16.0); Imm Gran Abs Auto 0.02 X10*3/uL (0.00-0.03); Imm Gran Pct Auto 0.3 % (0.0-0.4); Lymphocytes Absolute Auto 3.2 X10*3/uL (1.2-4.9); Mean Corpuscular HGB Conc 33.3 g/dl (31.0-35.0); Mean Corpuscular Hemoglobin 29.1 pg (27.0-33.0); Mean Corpuscular Volume 87.2 fL (80.0-98.0); NRBC Abs Auto 0.000 X10*3/uL (0.0-0.012); NRBC Pct Auto 0.0 /100WBC (0.0-0.2); Platelet Count 282 X10*3/uL (160-400); Red Blood Count 4.75 X10*6/uL (4.20-5.50); White Blood Count 7.5 X10*3/uL (4.8-10.8)
[2025-07-15 10:28] LABS: Alanine Aminotransferase 21 U/L (0-31); Albumin Level 4.8 g/dL (3.5-5.0); Alkaline Phosphatase 62 U/L (39-117); Anion Gap 11 (12-20); Aspartate Amino Transferase 21 U/L (5-31); Blood Urea Nitrogen 14 mg/dL (9-16); Calcium 9.8 mg/dL (8.4-10.2); Carbon Dioxide 28 mmol/L (22-29); Chloride 108 mmol/L (96-108); Cholesterol 162 mg/dL (<200); Estimated Glomerular Filt Rate > 60; HDL Cholesterol 70 mg/dL (>40); Potassium 4.4 mmol/L (3.3-5.1); Sodium 143 mmol/L (135-145); Total Protein 7.7 g/dL (6.5-8.0); Triglycerides 39 mg/dL (<150)
--- OUTSIDE RECORDS SUMMARY | 2025-07-15 10:46 | XMS_ITS | Patient Health Record ---
Author Organization [facility] Address [address] [place] [address] Support Name Relationship Address Phone BernardoBrooklynn Guarantor Unknown [phone] Allergies Allergen (clinical drug ingredient) Drug/Non Drug Allergy documented on EMR Reaction Allergy Type Onset Date Status Seasonale Unknown Drug Allergy Active Reason For Referral No Information Social History Sex Assigned At : Social History Observation Description Sex Assigned At Female Social History HIV Risk Assessment Social Info Question Answer Notes Additional Questions Is an HIV Risk Assessment being c onducted? Yes Have you been tested for HIV before? Yes Did you have a blood transfusion prior to 1985? No Do you have an unlicensed body piercing or tattoo? Yes Reproductive Life Plan: Social Info Question Answer Notes Reproductive Life Plan: Do you want to h ave children? No, I don't want to have children Human Trafficking: Social Info Question Answer Notes Human Trafficking Experienced: No PrEP for HIV: Social Info Question Answer Notes PrEP for HIV Is the client intere sted in beginning/continuing PrEP for HIV? No Sexual History: Social Info Question Answer Notes Sexual History: Sexual History Reviewed: Partner s, Practices, Protection/Past STIs, Prevention of Currently sexually active? Yes Sexually active with: Men Number of male partners 1 Your sexual activities include: oral intercourse, vaginal intercourse Reviewed types of EC? Yes Have you/your partner(s) ever used EC? No Offered client EC? No Do you use condoms? Yes Condoms are used: regularly Number of partners in past 3 months: 1 Number of partners in past year: 3 Does your partner(s) currently have any STIs? No Counseling Provided: Social Info Question Answer Notes Counseling Provided Please indicate the length of time, in minutes, that counseling was provided. 5 Counseling Was Provided By: joe Drugs/Alcohol: Social Info Question Answer Notes Drug/Alcohol Use Do you or have you used drugs? Yes, c urrently By what route are you taking drugs? Please check all that apply: Smoking Which drug(s) do you smoke? Marijuana Do you want to quit drugs? No Do you or have you used alcohol? Yes, currently Food Access: Social Info Question Answer Notes Food Access The Client's current access to food is Secure Food Access Relationships: Social Info Question Answer Notes Relationships Has the client exper ienced any of the following: Client has never experienced harmful relationships Housing Social Info Question Answer Notes Housing The client's current living situation is: stable housing Tobacco Use: Social Info Question Answer Notes Tobacco Use: Do you/have you used tobacco? Yes, currently when she drinks Tobacco Smoking Status Current some day smoker Plan Of Treatment No Information Insurance Providers Payer Name Payer Address Payer Phone Subscriber Number Group Number Insured Name Patient Relationship to Insured Coverage Start Date Coverage End Date [place] ATT [place]S [address] [place] [id number] Brooklynn Chang Self - patient is the [...]
--- OUTSIDE RECORDS SUMMARY | 2025-07-15 10:46 | XMS_ITS | Data Portability ---
Author Organization [facility] [place] [facility], [address] Address [address] [place] [address] Care Team Providers Care Research Program Intern Name Role Phone ARLETTE CHIN Primary Care Provider Assessment No assessment recorded. Plan of Treatment Reminders Order Date Submit Date Provider Last Modified By Organization Details Last Modified Time Details Appointments None recorded. Lab varicella zoster virus IgG Ab, QN, IA, serum 2023 024 [facility]), [address] [place], [address], 4 12:06:12 measles + mumps + rubella virus IgG panel, QN, serum or plasma 2023 024 [facility]), [address] [place], [address], 4 14:07:03 hepatitis B surface Ab, quantitativ e, serum 2023 024 [facility]), [address] [place], [address], 4 16:07:00 Mycobacteri um tuberculosi s stimulated gamma interferon, qual, blood 2023 024 [facility]), [address] [place], [address], 4 06:08:00 urinalysis, dipstick 2022 023 [email or web address] [address], [address] [place], [address], 16:48:32 test, urine 2022 023 [email or web address] [address], [address] [place], [address], 16:48:33 vaginal pathogens panel, ARTUR+probe, vaginal fluid 2022 023 [facility] [place], [address], 22:06:14 culture, urine 2022 023 [facility] [address] [place], [address], 06:08:09 Referral None recorded. Procedures None recorded. Surgeries None recorded. Imaging None recorded. Medication Orders None recorded. Patient TargetsNo targets recorded. Patient Instructions Encounter Date Encounter Id Patient Instructions Last Modified By Organization Details Last Modified Time 08/06/2023 [id number] vaginitis: care instructions [email or web address] Not available 08/06/2023 16:48:30 How can you [...] Astroglide, K-Y Jelly, and Wet Lubricant Gel. [email or web address] Not available 08/06/2023 16:48:28 Reason for Referral None Reported. Results Created Date Observation Date Name Description Value Unit Range Abnormal Flag Note LastModifiedBy Organization Detail LastModifiedTime 08/06/2008/07/2023 URINE CULTU RE, NIKOLAI NE urine culture, routine FINAL REPORT Not Available [facility] ([facility]) [address], [place], [address], 08/08/2023 06:08:09 08/06/20 23 08/07/2023 URINE CULTU RE, GERTRUDEI NE result 1 NO GROWTH Not Available [facility] ([facility]) [address], [place], [address], 08/08/2023 06:08:09 08/06/20 23 08/08/2023 NUSWA B VAGIN ITIS PLUS (VG+) atopobium vaginae HIGH - 2 score abnormal Not Available [facility] ([facility]) [address], [place], [address], 08/08/2023 22:06:14 08/06/20 23 08/08/2023 NUSWA B VAGIN ITIS PLUS (VG+) bvab 2 HIGH - 2 score abnormal Not Available [facility] ([facility]) [address], [place], [address], 08/08/2023 22:06:14 08/06/20 23 08/08/2023 NUSWA B [...] Drug Admin istra tion. Not Available [facility] ([facility]) [address], [place], [address], 08/08/2023 22:06:14 08/06/20 23 08/08/2023 NUSWA B VAGIN ITIS PLUS (VG+) constance albicans, ARTUR POSITI VE negati ve abnormal Not Available [facility] ([facility]) [address], [place], [address], 08/08/2023 22:06:14 08/06/2008/08/2023 NUSWA B VAGIN ITIS PLUS (VG+) constance glabrata, ARTUR NEGATI VE negati ve Not Available [facility] ([facility]) [address], [place], [address], 08/08/2023 22:06:14 08/06/20 23 08/08/2023 NUA B VAGIN ITIS PLUS (VG+) trich vag by ARTUR NEGATI VE negati ve Not Available [facility] ([facility]) [address] [place], [address], 08/08/2023 22:06:14 08/06/20 23 08/08/2023 NUSWA B VAGIN ITIS PLUS (VG+) chlamydia trachomatis, ARTUR NEGATI VE negati ve Not Available [facility] ([facility]) [address] [place], [address], 08/08/2023 22:06:14 08/06/20 23 08/08/2023 NUSWA B VAGIN ITIS PLUS (VG+) neisseria gonorrhoeae, ARTUR NEGATI VE negati ve Not Available [facility] ([facility]) [address] [place], [address], 08/08/2023 22:06:14 08/06/20 23 08/06/2023 pregn thom test, urine Unknown Analyte negati ve Not Available [facility] [address] [place], [address], 08/06/2023 15:30:00 08/06/2008/06/2023 pregn thom test, urine Unknown Analyte yes Not Available [address] [place], [address], 08/06/2023 15:30:00 08/06/20 23 08/06/2023 urina lysis , dipst ick Unknown Analyte Yellow Not Available [address] [place], [address], 08/06/2023 15:29:53 08/06/2008/06/2023 urina lysis , dipst ick Unknown Analyte Clear Not Available [address] [place], [address], 08/06/2023 15:29:53 08/06/20 23 08/06/2023 urina lysis , dipst ick Unknown Analyte Negati ve Not Available [facility] [address] [place], [address], 08/06/2023 15:29:53 08/06/20 23 08/06/2023 urina lysis , dipst ick Unknown Analyte Negati ve Not Available [facility] [address] [place], [address], 08/06/2023 15:29:53 08/06/20 23 08/06/2023 urina lysis , dipst ick Unknown Analyte Negati ve Not Available [facility] [address] [place], [address], 08/06/2023 15:29:53 08/06/20 23 08/06/2023 urina lysis , dipst ick Unknown Analyte 1.025 Not Available adela [address] [place], [address], 08/06/2023 15:29:53 08/06/2008/06/2023 urina lysis , dipst ick Unknown Analyte Trace- intact Not Available [facility] [address] [place], [address], 08/06/2023 15:29:53 08/06/2008/06/2023 urina lysis , dipst ick Unknown Analyte 5.5 Not Available [facility] [place], [address], 08/06/2023 15:29:53 08/06/2008/06/2023 urina lysis , dipst ick Unknown Analyte Negati ve Not Available [facility] [address] [place], [address], 08/06/2023 15:29:53 08/06/20 23 08/06/2023 urina lysis , dipst ick Unknown Analyte 0.2 E.U./d L Not Available [facility] [address] [place], [address], 08/06/2023 15:29:53 08/06/2008/06/2023 urina lysis , dipst ick Unknown Analyte Negati ve Not Available [facility] [address] [place], [address], 08/06/2023 15:29:53 08/06/20 23 08/06/2023 urina lysis , dipst ick Unknown Analyte Negati ve Not Available [facility] [address] [place], [address], 08/06/2023 15:29:53 02/05/20 24 02/06/2024 VARIC CHAD- [...] stage of disea se. Not Available [facility] ([facility]) [address], [place], [address], 02/06/2024 12:06:12 02/05/20 24 02/06/2024 MEASL ES/MU MPS/R UBELL A IMMUN ITY rubella antibodies, IgG 1.13 index immune >0.99 Non-i mmune <0.90 Equiv ocal 0.90 - 0.99 Immun e >0.99 Not Available [facility] ([facility]) [address] [place], [address], 02/06/2024 14:07:03 02/05/20 24 02/06/2024 MEASL ES/MU [...] tion is suspe cted. Not Available [facility] ([facility]) [address], [place], [address], 02/06/2024 14:07:03 02/05/20 24 02/06/2024 MEASL ES/MU MPS/R UBELL A IMMUN ITY mumps abs, IgG 88.4 AU/mL immune >10.9 Negat lavelle <9.0 Equiv ocal 9.0 - 10.9 Posit lavelle >10.9 A posit lavelle resul t gener ally indic ates past expos ure to Mumps virus or previ ous vacci natio n. Not Available [facility] ([facility]) [address], [place], [address], 02/06/2024 14:07:03 02/05/20 24 02/06/2024 HEPAT ITIS [...] to: Immun ity >10 Not Available [facility] ([facility]) [address], [place], [address], 02/06/2024 16:07:00 02/05/20 24 02/07/2024 QUANT IFERO N-TB GOLD PLUS quantiferon incubation INCUBA TION PERFOR MED. Not Available [facility] ([facility]) [address] [place], [address], 02/08/2024 06:08:00 02/05/20 24 02/07/2024 QUANT IFERO [...] ol for the test. Not Available [facility] ([facility]) [address], [place], [address], 02/08/2024 06:08:00 02/05/20 24 02/07/2024 QUANT IFERO N-TB GOLD PLUS quantiferon TB1 Ag value 0.03 IU/mL Not Available [facility] ([facility]) [address] [place], [address], 02/08/2024 06:08:00 02/05/2002/07/2024 QUANT IFERO N-TB GOLD PLUS quantiferon TB2 Ag value 0.03 IU/mL Not Available [facility] ([facility]) [address] [place], [address], 02/08/2024 06:08:00 02/05/2002/07/2024 QUANT IFERO N-TB GOLD PLUS quantiferon nil value 0.02 IU/mL Not Available [facility] ([facility]) [address] [place], [address], 02/08/2024 06:08:00 02/05/20 24 02/07/2024 QUANT IFERO N-TB GOLD PLUS quantiferon mitogen value >10.00 IU/mL Not Available [facility] ([facility]) [address] [place], [address], 02/08/2024 06:08:00 02/05/2002/07/2024 QUANT IFERO N-TB GOLD [...] y metho dolog y Not Available [facility] ([facility]) [address], [place], [address], 02/08/2024 06:08:00 Result Notes None recorded. Problems Name Problem SNOMED Code Status Onset Date Resolution Date Notes Provider Name and Address Organization Details Recorded Time Malignant neoplasm of ovary 303073996 Active Qing christensen PA - [facility] 15:27:56 Problem Notes None recorded. Procedures Surgical History Date Name Laterality Status Provider Name and Address Organization Details Recorded Time 02/05/20 24 OC-UDS Send Out Template NON DOT completed [...] in Arterial blood by Pulse oximetry Systolic And Diastolic Provider Name and Address Organization Details Last Updated DateTime 3 157.48 cm 42.1 kg/m2 061983. 25 g 16 /min 98.3 [degF] 75 /min 95 % 95 % 112/77 mm[Hg] Qing LUND - [facility] 15:32:04 Social History Question Answer Notes LastModified by Blabroom Details LastModified Time Tobacco Smoking Status Never Smoker Qing christensen PA - [facility] 08/06/2023 15:28:40 Which Illicit Or Recreational Drugs Have You Used? Marijuana [email or web address] Information not available 08/06/2023 Have You Had A Flu Shot This Season? No [email or web address] Information not available 08/06/2023 What Was The Date Of Your Most Recent Tobacco Screening? 08/06/2023 [email or web address] Information not available 08/06/2023 Have You Recently Traveled Abroad? No [email or web address] Information not available 08/06/2023 Sex: Unknown Functional Status Question Answer Note LastModified by [employer] Details LastModified Time Do you use any illicit or recreational drugs? Yes [email or web address] Information not available 08/06/2023 What is your level of alcohol consumption? None Information not available 08/06/2023 Mental Status None recorded. Family History Relationship Description Onset Age of this Age Resolved Age Notes LastModified by Organization Details LastModified Time Father No current problems or disability [email or web address] Not available 08/06 15:28:05 Mother No current problems or disability [email or web address] Not available 08/06 15:28:05 Medical History No [...] or 50 mcg/0.25mL dose 07/13/2021 completed Qing Lopez null, PA - [facility] 08/06/2023 15:26:35 COVID-19, mRNA, LNP-S, bivalent, PF, 50 mcg/0.5 mL or 25mcg/0.25 mL dose 09/21/2022 completed Qing Lopez null, PA - [facility] 08/06/2023 15:26:35 Past Encounters Encounter ID Performer Location Encounter Start Date Encounter Closed Date Diagnosis/Indication Diagnosis SNOMED-CT Code Diagnosis ICD10 Code Diagnosis IMO Codes Diagnosis Note [id number] [address] [place] [address] 01/31/2018 13:27:13 01/31/2018 15:19:12 [id number] [place] [address] [place] [address] 08/06/2023 14:21:13 08/06/2023 16:49:24 Acute vaginitis 48007181 N76.0 vaginitis is soreness or infection of [...] your sex partner(s) must be treated too. [id number] KEVON TOURE [address] [address] 02/05/2024 11:16:40 02/05/2024 13:41:22 History and physical examination, occupation 926459702 Z02.1 Health Concerns Section Related Observation LastModified by Organization Detai ls LastModified Time None Recorded Concern Status LastModified by Organization Details LastModified Time None Recorded Advance Directives Directive None Recorded Payers Insurance Date Sequence Insurance Name Policy Number Policy Juarez Covered Member ID Juarez Member ID Guarantor Name 02/05/2024 [facility] E SCREEN E SCREEN Brooklynn Butt 02/25/2024 1 [facility] (O) [id number] Brooklynn L Butt [id number] Brooklynn Butt Notes Date Note Type Note Provider Name and Address Organization Details Recorded Time 3 text/htm l Abdominal Pain UCReported by PatientAbdominal PainFor quality, patient reportspain,cramping, anddull. For source of patient information, patient reportspatientandpatient arrived at urgent care ambulatory. For location, patient reportssuprapubic. For severity, patient reportsmild. For duration, patient reportsintermittent. For onset/timing, patient reportsbetter. For context, patient reportsno travel. For modifying factors, patient reportslaying down. For associated symptoms, patient reportsno fever,no chills,no blood in the urine,no heartburn,no shortness of breath, andno change in bowel/bladder habits. For other, patient reportsdenies possible pregnancyandsexually active. Diarrhea UCReported by Patient Presents with lower back and abdominal pain that comes and goes, yellow discharge, vaginal itching x2 days possible exposure to STI. new partner, sex without condom. Joy Rolon NP [address] [place], [address], [place] - [facility] 08/06/2023 16:59:21 OBGyn Episode No OBEpisode recorded.
[2025-07-15 10:59] LABS: Thyroid Stimulating Hormone 0.87 uIU/mL (0.32-4.0)
== END 2025-07-15 09:19 | disposition home or self-care (01) ==
LOC: HO.LAB 09:18
PROVIDERS: PCP Internal Medicine; Visit Provider Internal Medicine
DX: Z00.00 Encounter for general adult medical examination without abnormal findings (principal); I10 Essential (primary) hypertension; H91.91 Unspecified hearing loss, right ear; R74.01 Elevation of levels of liver transaminase levels
CPT/HCPCS: 36415; 80053; 80061; 84443; 85025

== ENCOUNTER 2025-08-15 11:24 | Emergency (ER) | payer OTHER, SELFPAY ==
--- NOTE | ~2025-08-15 | CT_ITS ---
CLINICAL HISTORY: abd pain CT abdomen and pelvis without contrast Comparison: None provided Findings: The lung bases are clear. The gallbladder and solid organs are within normal limits. No renal stones. No bowel obstruction, pneumoperitoneum, or pneumatosis. Pelvic contents unremarkable. Normal appendix. No acute fracture. IMPRESSION: No acute finding. Liquid stool throughout the colon may indicate a diarrheal illness such as enterocolitis. This document has been electronically signed by: Davie Emerson MD on 08/15/2025 19:13:54
[2025-08-15 11:29] VITALS: BP 128/92; PULSE 74; O2SAT 91
[2025-08-15 11:34] VITALS: BP 129/86; PULSE 82; RESP 18; TEMP 36.5; O2SAT 94; BMI 30.8
--- NOTE | 2025-08-15 11:44 | ED.GENADULT ---
HPI - General Adult General Chief complaint: General Medical Stated complaint: ACUTE ONSET N/V/D X2H PER EMS Time Seen by Provider: 08/15/25 11:44 Source: patient and EMS Mode of arrival: EMS Limitations: no limitations History of Present Illness ED Provider: Adelaida Wiggins PA-C HPI narrative: Patient is a 39 year old assigned female at with no reported medical history presenting to the emergency department today with nausea, vomiting, diarrhea, and weakness. Patient states that she had [place] food last night and starting at 0900 this morning she began to have nausea, vomiting, diarrhea, and weakness. Patient denies any other complaints at this time. Related Data Previous Rx's ?Medication ?Instructions ?Recorded cyclobenzaprine 5 mg tablet 5 mg PO Q8H PRN muscle pain #7 tabs 12/29/24 lidocaine 5 % topical patch 1 patch topical DAILY #15 ea 12/29/24 (Lidoderm) ondansetron 4 mg disintegrating 4 mg PO Q8H 3 days #9 tabs 08/15/25 tablet Allergies Allergy/AdvReac Type Severity Reaction Status Date / Time No Known Allergies Allergy Verified 08/15/25 11:35 Review of Systems Constitutional: Constitutional: Reports as per HPI Eyes: Eyes: Reports as per HPI ENT: Reports as per HPI Cardiovascular: Cardiovascular: Reports as per HPI Respiratory: Respiratory: Reports as per HPI Gastrointestinal: Gastrointestinal: Reports as per HPI Genitourinary: Genitourinary: Reports as per HPI Musculoskeletal: Musculoskeletal: Reports as per HPI Integumentary/Breasts: Skin/Breast: Reports as per HPI Neurologic: Reports as per HPI Psychiatric: Psychiatric: Reports as per HPI Endocrine: Endocrine: Reports as per HPI Hematologic/Lymphatic: Hematologic/Lymphatic: Reports as per HPI Allergic/Immunologic: Allergic/Immunologic: Reports as per HPI PMF Past Medical History Attestation statement: The following information was validated with the patient. Source: old records reviewed and nursing notes reviewed Social History Social History Advance Directives: No Advance Directives Information Provided: Yes Physical Exam ED Vital Signs: Vital Signs - 24 hr 08/15/25 11:34 Temperature 97.7 F Pulse Rate 82 Respiratory Rate 18 Blood Pressure 129/86 Pulse Oximetry 94 Oxygen Delivery Method Room Air BMI result Body Mass Index 30.8 Const General: cooperative, no acute distress, alert and awake Nutritional Appearance: well nourished Orientation/consciousness: patient oriented x3 HENMT Head: Yes normal to inspection and Yes atraumatic Ears: hearing grossly normal bilaterally and external ears normal General nose exam: Normal external nose present, no nasal discharge noted and no epistaxis Face and sinus: Yes normal facial exam, No abrasion and No laceration Mouth: Normal oral and palatal mucosa present, no drooling and no muffled voice Eyes General: appearance normal, both eyes and all related structures Periorbital: periorbital findings normal Eyelids: Yes eyelids normal Conjunctivae: conjunctivae normal Pupils: Equal, round and reactive pupils present EOM: EOMs intact bilaterally Neck Neck: Yes normal visual inspection and Yes full ROM Resp Effort & Inspection: normal respiratory effort and able to speak in complete sentences Neuro General: patient oriented x3, moves all extremities and CN's II-XI intact bilaterally Cranial nerves: Yes Equal, round and reactive pupils present Cognition (Neuro): normal cognition Extrem General: Yes normal to inspection, Yes full ROM and Yes capillary refill normal Psych Appearance: grossly normal Mental Status: mental status grossly normal Affect: normal affect Attitude: cooperative Thought process: Normal thought process present Thought content: Normal thought content present Insight: Good insight present (Psych) Medications Administered Discontinued Medications Generic Name Dose Route Start Last Admin Trade Name Vicente PRN Reason Stop Dose Admin Diphenhydramine HCl 25 mg 08/15/25 13:23 08/15/25 13:40 Diphenhydramine Hcl 50 Mg/Ml Vial IVPUSH 08/15/25 13:24 25 mg ONCE ONE Administration Sodium Chloride 1,000 mls @ 999 mls/hr 08/15/25 11:45 08/15/25 13:07 Ns IV 08/15/25 12:45 Infused .Q1H1M MARIELA Infusion Metoclopramide HCl 10 mg 08/15/25 13:23 08/15/25 13:40 Metoclopramide Hcl 10 Mg/2 Ml Vial IVPUSH 08/15/25 13:24 10 mg ONCE ONE Administration Morphine Sulfate 4 mg 08/15/25 13:23 08/15/25 13:40 Morphine Sulfate 4 Mg/Ml Cartridge IVPUSH 08/15/25 13:24 4 mg ONCE ONE Administration Protocol Ondansetron HCl 4 mg 08/15/25 11:43 08/15/25 11:50 Ondansetron Hcl 4 Mg/2 Ml Vial IVPUSH 08/15/25 11:44 4 mg ONCE ONE Administration Medical Decision Making Medical Decision Making [facility] Narrative: Patient is a 39 year old assigned female at with no reported medical history presenting to the emergency department today with nausea, vomiting, diarrhea, and weakness. Patient's physical exam was as noted in the physical exam portion of this note. Patient's blood work showed an elevated WBC count that I believe is secondary to the patient's vomiting. Patient's urine showed no acute process. Patient's EKG was unremarkable. Patient's CT abd/pelvis showed no acute process. Patient received IV morphine, reglan, benadryl, and zofran which, upon re-evaluation, she stated it helped her symptoms significantly. I explained my physical exam findings as well as all test results to the patient. I answered all questions asked by the patient. Patient was able to tolerate PO intake while in the department. I stressed the importance of the patient taking her medication as directed (either prescribed or as the over the counter packaging recommends). I stressed the importance of the patient following up with her primary care provider. I stressed the importance of the patient returning to the emergency department immediately if her symptoms were to worsen or if she were to develop any dizziness, shortness of breath, difficulty breathing, chest pain, blurry vision, loss of vision, nausea, vomiting, abdominal pain, fever, chills, back pain, or any other complaints. Patient verbalized agreement and understanding with this treatment plan and discharge. Differential Diagnosis Differential Diagnoses: The differential diagnosis associated with the presentation includes Abdominal pain Vomiting Gastroenteritis Admission/Observation Consideration of admission/observation: Escalation of care including admission/observation considered Patient would have been admitted to the hospital had her work up had any findings where hospital admission was appropriate and her clinical presentation warranted hospital admission. Lab Data [facility] Lab Attestation statement: I reviewed the patient's lab results. My interpretation of these results are in the [facility] Rationale portion of this note. 08/15/25 11:53 08/15/25 11:53 Labs: Lab Results 08/15/25 08/15/25 Range/Units 11:53 17:15 WBC 18.2 H (4.8-10.8) X10*3/uL RBC 5.43 (4.20-5.50) X10*6/uL Hgb 16.0 (12.0-16.0) g/dl Hct 47.0 (37.0-47.0) % MCV 86.6 (80.0-98.0) fL MCH 29.5 (27.0-33.0) pg MCHC 34.0 (31.0-35.0) g/dl RDW 12.7 (11.0-16.0) % Plt Count 337 (160-400) X10*3/uL MPV 10.2 (9.4-12.3) fL Immature Gran % (Auto) 0.4 (0.0-0.4) % Neut % (Auto) 83.6 H (45-73) % Lymph % (Auto) 11.5 L (20-40) % [place] % (Auto) 3.0 (2-11) % Eos % (Auto) 1.1 (0-4) % Baso % (Auto) 0.4 (0-2) % Lymph # (Auto) 2.1 (1.2-4.9) X10*3/uL [place] # (Auto) 0.5 (0.1-1.2) X10*3/uL Eos # (Auto) 0.2 (0.0-0.4) X10*3/uL Baso # (Auto) 0.1 (0.0-0.2) X10*3/uL Abs Immat Gran (auto) 0.08 H (0.00-0.03) X10*3/uL Absolute Neuts (auto) 15.2 H (2.0-8.3) x10*3/uL Absolute Nucleated RBC 0.000 (0.0-0.012) X10*3/uL Nucleated RBC % (auto) 0.0 (0.0-0.2) /100WBC Sodium 141 (135-145) mmol/L Potassium 4.0 (3.3-5.1) mmol/L Chloride 106 (96-108) mmol/L Carbon Dioxide 22 (22-29) mmol/L Anion Gap 17 (12-20) BUN 21 H (9-16) mg/dL Creatinine 0.93 (0.5-1.4) mg/dL Estim Creat Clear Calc 88.6 Estimated GFR > 60 Random Glucose 142 H (60-115) mg/dL Calcium 10.8 H D (8.4-10.2) mg/dL Magnesium 1.9 (1.6-2.6) mg/dL Total Bilirubin 0.3 (0.0-1.0) mg/dL AST 26 (5-31) U/L ALT 34 H (0-31) U/L Alkaline Phosphatase 80 (39-117) U/L Total Protein 9.2 H (6.5-8.0) g/dL Albumin 5.7 H (3.5-5.0) g/dL Lipase 22 (8-78) U/L Beta HCG, Quant < 2 mIU/mL Urine Color Yellow Urine Appearance Clear Urine pH 5.0 (5.0-9.0) Ur Specific [place] 1.010 (1.005-1.025) Urine Protein Negative (Neg-Trace) mg/dL Urine Glucose (UA) Negative (Negative) mg/dL Urine Ketones Negative (Negative) mg/dL Urine Blood Negative (Negative) Urine Nitrite Negative (Negative) Ur Leukocyte Esterase Negative (Negative) Influenza Type A (PCR) NEGATIVE (Negative) Influenza Type B (PCR) NEGATIVE (Negative) RSV RNA Qual (PCR) NEGATIVE (Negative) SARS-CoV-2 RNA (RT-PCR) NEGATIVE (Negative) Independent Interpretation I performed an independent interpretation of an: CT Scan Interpretation: My interpretation is in agreement with the radiologist's impression of this imaging study as written below. CLINICAL HISTORY: abd pain CT abdomen and pelvis without contrast Comparison: None provided Findings: The lung bases are clear. The gallbladder and solid organs are within normal limits. No renal stones. No bowel obstruction, pneumoperitoneum, or pneumatosis. Pelvic contents unremarkable. Normal appendix. No acute fracture. IMPRESSION: No acute finding. Liquid stool throughout the colon may indicate a diarrheal illness such as enterocolitis. This document has been electronically signed by: Davie Emerson MD on 08/15/2025 19:13:54 Dictated By: Davie Emerson MD Signed By: Electronically signed by Davie Emerson MD 08/15/251914 Radiology Impression Discussion of test interpretation with radiology: I have reviewed the radiologist's reading. Independent Historian Clinical information obtained from an independent historian. History obtained from or confirmed by: EMS (EMS provided additional history and confirmed the history provided by the patient.) Critical Care Time Critical Care Time Critical Care Time: Yes Total Critical Care Time: 49 Attestation: I spent 49 minutes of Critical Care Time with this patient. This does not include time spent on separately reported billable procedures. Discharge Plan Discharge Clinical Impression: Gastroenteritis Patient Disposition: Home, Self-Care Instructions: Gastroenteritis (DC), Acute Nausea and Vomiting (DC) Additional Instructions: Your work up today was reassuring there is no emergent cause for your symptoms and the [place] food you ingested is the likely culprit. Advance your diet SLOWLY or risk vomiting again. IF you are prescribed home medications and/or you are taking over the counter medications at home - it is very important you continue to do so as prescribed / directed unless told otherwise by a healthcare provider. Follow up with your primary care provider. Do your best to stay well hydrated and rest. Return to the emergency department immediately if your symptoms worsen or if you develop any numbness, tingling, dizziness, shortness of breath, difficulty breathing, chest pain, blurry vision, loss of vision, nausea, vomiting, abdominal pain, fever, chills, back pain, or any other complaints. Please see the information below about our Patient Portal. If you are not yet enrolled in the [facility] Patient Portal, you will receive an enrollment email invitation following your visit to any [facility] setting. You may also self-enroll in the Patient Portal by visiting our website: [email or web address] The following information is required to access the Patient Portal: - Your [facility] Medical Record Number - Your personal home email address (must match what is in your electronic medical record, Registration staff can assist with this) - Name - Date of Capabilities of the Patient Portal: - Message some providers - View upcoming appointments - Access your health summary, medical history, and visit history - View current conditions and allergies - View procedure and lab results - View your medications, including guidelines, side effects, and precautions - Complete pre-appointment questionnaires requested by your provider - Ready summary reports of your office visits and procedures To access the Patient Portal Mobile Alex, follow these directions: - Search excentos in the Alex Store or PodTech Store - Download the Alex - Search for [facility] - Enter your login/password Prescriptions: New ondansetron 4 mg tablet,disintegrating 4 mg PO Q8H 3 Days Qty: 9 0RF No Action cyclobenzaprine 5 mg tablet 5 mg PO Q8H PRN (Reason: muscle pain) Qty: 7 0RF lidocaine [Lidoderm] 5 % adhesive patch,medicated 1 patch topical DAILY Qty: 15 0RF Rx Instructions: leave on most painful area for up to 12 hrs Referrals: Soraya Su MD [Primary Care Provider, Internal Medicine] Stand Alone Forms: Work/School Release Interventions: ED Discharge Assessment Last Done: 08/15/25 17:35 Discharge Date/Time: 08/15/25 17:38 Print Language: Albanian
--- OUTSIDE RECORDS SUMMARY | 2025-08-15 11:52 | XMS_ITS | Data Portability ---
Author Organization [facility] [place] [facility], [address] Address [address] [place] [address] Care Team Providers Care Nuisance Animal Damage Control Agent Name Role Phone ARLETTE CHIN Primary Care Provider Assessment No assessment recorded. Plan of Treatment Reminders Order Date Submit Date Provider Last Modified By Organization Details Last Modified Time Details Appointments None recorded. Lab varicella zoster virus IgG Ab, QN, IA, serum 2023 024 [facility]), [address] [place], [address], 4 12:06:12 measles + mumps + rubella virus IgG panel, QN, serum or plasma 2023 024 [facility]), [address] [place], [address], 4 14:07:03 hepatitis B surface Ab, quantitativ e, serum 2023 024 [facility]), [address] [place], [address], 4 16:07:00 Mycobacteri um tuberculosi s stimulated gamma interferon, qual, blood 2023 024 [facility]), [address] [place], [address], 4 06:08:00 urinalysis, dipstick 2022 023 [email or web address] [address], [address] [place], [address], 16:48:32 test, urine 2022 023 [email or web address] [address], [address] [place], [address], 16:48:33 vaginal pathogens panel, ARTUR+probe, vaginal fluid 2022 023 [facility] [place], [address], 22:06:14 culture, urine 2022 023 [facility] [address] [place], [address], 06:08:09 Referral None recorded. Procedures None recorded. Surgeries None recorded. Imaging None recorded. Medication Orders None recorded. Patient TargetsNo targets recorded. Patient Instructions Encounter Date Encounter Id Patient Instructions Last Modified By Organization Details Last Modified Time 08/06/2023 [id number] vaginitis: care instructions [email or web address] Not available 08/06/2023 [...] culture, routine FINAL REPORT Not Available [facility] ([facility]) [address] [facility], [place], [address], 08/08/2023 06:08:09 08/06/20 23 08/07/2023 URINE CULTU RE, GERTRUDEI NE result 1 NO GROWTH Not Available [facility] ([facility]) [address] [facility], [place], [address], 08/08/2023 06:08:09 08/06/20 23 08/08/2023 NUSWA B VAGIN ITIS PLUS (VG+) atopobium vaginae HIGH - 2 score abnormal Not Available [facility] ([facility]) [address] [facility], [place], [address], 08/08/2023 22:06:14 08/06/20 23 08/08/2023 NUSWA B VAGIN ITIS PLUS (VG+) bvab 2 HIGH - 2 score abnormal Not Available [facility] ([facility]) [address] [facility], [place], [address], 08/08/2023 22:06:14 08/06/20 23 08/08/2023 NUSWA B [...] Drug Admin istra tion. Not Available [facility] ([facility]) [address] [facility], [place], [address], 08/08/2023 22:06:14 08/06/20 23 08/08/2023 NUSWA B VAGIN ITIS PLUS (VG+) constance albicans, ARTUR POSITI VE negati ve abnormal Not Available [facility] ([facility]) [address] [facility], [place], [address], 08/08/2023 22:06:14 08/06/2008/08/2023 NUSWA B VAGIN ITIS PLUS (VG+) constance glabrata, ARTUR NEGATI VE negati ve Not Available [facility] ([facility]) [address] [facility], [place], [address], 08/08/2023 22:06:14 08/06/20 23 08/08/2023 NUA B VAGIN ITIS PLUS (VG+) trich vag by ARTUR NEGATI VE negati ve Not Available [facility] ([facility]) [address] [place], [address], 08/08/2023 22:06:14 08/06/20 23 08/08/2023 NUSWA B VAGIN ITIS PLUS (VG+) chlamydia trachomatis, ARTUR NEGATI VE negati ve Not Available [facility] ([facility]) [address] [place], [address], 08/08/2023 22:06:14 08/06/20 23 08/08/2023 NUSWA B VAGIN ITIS PLUS (VG+) neisseria gonorrhoeae, ARTUR NEGATI VE negati ve Not Available [facility] ([facility]) [address] [place], [address], 08/08/2023 22:06:14 08/06/20 23 08/06/2023 pregn thom test, urine Unknown Analyte negati ve Not Available [facility] [address] [place], [address], 08/06/2023 15:30:00 08/06/2008/06/2023 pregn thom test, urine Unknown Analyte yes Not Available [place] [place], [address], 08/06/2023 15:30:00 08/06/20 23 08/06/2023 urina lysis , dipst ick Unknown Analyte Yellow Not Available [address] [place], [address], 08/06/2023 15:29:53 08/06/2008/06/2023 urina lysis , dipst ick Unknown Analyte Clear Not Available [address] [place], [address], 08/06/2023 15:29:53 08/06/20 23 08/06/2023 urina lysis , dipst ick Unknown Analyte Negati ve Not Available [facility] [address] [place], [address], 08/06/2023 15:29:53 08/06/20 23 08/06/2023 urina lysis , dipst ick Unknown Analyte Negati ve Not Available [facility] [address] [place], [address], 08/06/2023 15:29:53 08/06/20 23 08/06/2023 urina lysis , dipst ick Unknown Analyte Negati ve Not Available [facility] [address] [place], [address], 08/06/2023 15:29:53 08/06/20 23 08/06/2023 urina lysis , dipst ick Unknown Analyte 1.025 Not Available [place] [address] [place], [address], 08/06/2023 15:29:53 08/06/2008/06/2023 urina lysis , dipst ick Unknown Analyte Trace- intact Not Available [facility] [address] [place], [address], 08/06/2023 15:29:53 08/06/2008/06/2023 urina lysis , dipst ick Unknown Analyte 5.5 Not Available [facility] [place], [address], 08/06/2023 15:29:53 08/06/2008/06/2023 urina lysis , dipst ick Unknown Analyte Negati ve Not Available [facility] [address] [place], [address], 08/06/2023 15:29:53 08/06/20 23 08/06/2023 urina lysis , dipst ick Unknown Analyte 0.2 E.U./d L Not Available [facility] [address] [place], [address], 08/06/2023 15:29:53 08/06/2008/06/2023 urina lysis , dipst ick Unknown Analyte Negati ve Not Available [facility] [address] [place], [address], 08/06/2023 15:29:53 08/06/20 23 08/06/2023 urina lysis , dipst ick Unknown Analyte Negati ve Not Available [facility] [address] [place], [address], 08/06/2023 15:29:53 02/05/20 24 02/06/2024 VARIC CHAD- [...] stage of disea se. Not Available [facility] ([facility]) [address] [facility], [place], [address], 02/06/2024 12:06:12 02/05/20 24 02/06/2024 MEASL ES/MU MPS/R UBELL A IMMUN ITY rubella antibodies, IgG 1.13 index immune >0.99 Non-i mmune <0.90 Equiv ocal 0.90 - 0.99 Immun e >0.99 Not Available [facility] ([facility]) [address] [place], [address], 02/06/2024 14:07:03 02/05/20 24 02/06/2024 MEASL ES/MU [...] tion is suspe cted. Not Available [facility] ([facility]) [address] [facility], [place], [address], 02/06/2024 14:07:03 02/05/20 24 02/06/2024 MEASL ES/MU MPS/R UBELL A IMMUN ITY mumps abs, IgG 88.4 AU/mL immune >10.9 Negat lavelle <9.0 Equiv ocal 9.0 - 10.9 Posit lavelle >10.9 A posit lavelle resul t gener ally indic ates past expos ure to Mumps virus or previ ous vacci natio n. Not Available [facility] ([facility]) [address] [facility], [place], [address], 02/06/2024 14:07:03 02/05/20 24 02/06/2024 HEPAT ITIS [...] to: Immun ity >10 Not Available [facility] ([facility]) [address] [facility], [place], [address], 02/06/2024 16:07:00 02/05/20 24 02/07/2024 QUANT IFERO N-TB GOLD PLUS quantiferon incubation INCUBA TION PERFOR MED. Not Available [facility] ([facility]) [address] [place], [address], 02/08/2024 06:08:00 02/05/20 24 02/07/2024 QUANT IFERO [...] ol for the test. Not Available [facility] ([facility]) [address] [facility], [place], [address], 02/08/2024 06:08:00 02/05/20 24 02/07/2024 QUANT IFERO N-TB GOLD PLUS quantiferon TB1 Ag value 0.03 IU/mL Not Available [facility] ([facility]) [address] [place], [address], 02/08/2024 06:08:00 02/05/2002/07/2024 QUANT IFERO N-TB GOLD PLUS quantiferon TB2 Ag value 0.03 IU/mL Not Available [facility] ([facility]) [address] [place], [address], 02/08/2024 06:08:00 02/05/2002/07/2024 QUANT IFERO N-TB GOLD PLUS quantiferon nil value 0.02 IU/mL Not Available [facility] ([facility]) [address] [place], [address], 02/08/2024 06:08:00 02/05/20 24 02/07/2024 QUANT IFERO N-TB GOLD PLUS quantiferon mitogen value >10.00 IU/mL Not Available [facility] ([facility]) [address] [place], [address], 02/08/2024 06:08:00 02/05/2002/07/2024 QUANT IFERO N-TB GOLD [...] y metho dolog y Not Available [facility] ([facility]) [address] [facility], [place], [address], 02/08/2024 06:08:00 Result Notes None recorded. Problems Name Problem SNOMED Code Status Onset Date Resolution Date Notes Provider Name and Address Organization Details Recorded Time Malignant neoplasm of ovary 299144115 Active Qing christensen PA - [facility] [...] rate Body temperature Heart rate Oxygen saturation Systolic And Diastolic Provider Name and Address Organization Details Last Updated DateTime 3 157.48 cm 42.1 kg/m2 953252. 25 g 16 /min 98.3 [degF] 75 /min 95 % 112/77 mm[Hg] Qing Lopez PA - [facility] 3 15:32:04 Social History Question Answer Notes LastModified by [email or web address] Details LastModified Time Tobacco Smoking Status Never Smoker Qing christensen, PA - [facility] 08/06/2023 15:28:40 Which Illicit Or Recreational Drugs Have You Used? Marijuana Information not available 08/06/2023 Have You Had A Flu Shot This Season? No [email or web address] Information not available 08/06/2023 What Was The Date Of Your Most Recent Tobacco Screening? 08/06/2023 [email or web address] Information not available 08/06/2023 Have You Recently Traveled Abroad? No Information not available 08/06/2023 Sex: Unknown Functional Status Question Answer Note LastModified by Organizat ion Details LastModified Time Do you use any illicit or recreational drugs? Yes [email or web address] Information not available 08/06/2023 What is your level of alcohol consumption? None [email or web address] Information not available 08/06/2023 Mental Status None recorded. Family History Relationship Description Onset Age of this Age Resolved Age Notes LastModified by Organization Details LastModified Time Father No current problems or disability [email or web address] Not available 08/06 15:28:05 Mother No current problems or disability [email or web address] Not available 08/06 15:28:05 Medical History No [...] or 50 mcg/0.25mL dose 01/21/2021 completed Qing christensen, PA - [facility] 08/06/2023 15:26:35 COVID-19, mRNA, LNP-S, PF, 100 mcg/0.5mL dose or 50 mcg/0.25mL dose 02/21/2021 completed Qing Lopez null, [facility] - [facility] [...] ICD10 Code Diagnosis IMO Codes Diagnosis Note [id number] [address] [place] [address] 01/31/2018 13:27:13 01/31/2018 15:19:12 [id number] [place] [address] [place] [address] 08/06/2023 14:21:13 08/06/2023 16:49:24 Acute vaginitis 40283929 N76.0 vaginitis is soreness or infection of [...] your sex partner(s) must be treated too. [id number] KEVON TOURE [address] [address] 02/05/2024 11:16:40 02/05/2024 13:41:22 History and physical examination, occupation 351301142 Z02.1 Health Concerns Section Related Observation LastModified by Organization Detai ls LastModified Time None Recorded Concern Status LastModified by Organization Details LastModified Time None Recorded Advance Directives Directive None Recorded Payers Insurance Date Sequence Insurance Name Policy Number Policy Juarez Covered Member ID Juarez Member ID Guarantor Name 02/05/2024 [facility] E SCREEN E SCREEN Brooklynn Butt 02/25/2024 1 [facility] [address] [facility] (O) [id number] Brooklynn Jones Butt [id number] Brooklynn Butt Notes Date Note Type [...] sex without condom. Joy Rolon NP [address] [place], [address], PA - [facility] 08/06/2023 16:59:21 OBGyn Episode No OBEpisode recorded.
--- OUTSIDE RECORDS SUMMARY | 2025-08-15 11:52 | XMS_ITS | Patient Health Record ---
Author Organization [facility] Address [address] [place] [address] Support Name Relationship Address Phone Brooklynn Chang Guarantor Unknown [phone] Allergies Allergen (clinical drug ingredient) Drug/Non Drug Allergy documented on EMR Reaction Allergy Type Onset Date Status Information temporarily unavailable Seasonale Unknown Drug Allergy Active Reason For [...] Insured Coverage Start Date Coverage End Date [place] ATT CLAIMS [address] [place] [id number] Brooklynn Chang Self - patient is the [...]
[2025-08-15 11:59] LABS: MANUAL DIFF FLAG NO
[2025-08-15 12:04] LABS: Hematocrit 47.0 % (37.0-47.0); Hemoglobin 16.0 g/dl (12.0-16.0); Imm Gran Abs Auto 0.08 X10*3/uL (0.00-0.03); Imm Gran Pct Auto 0.4 % (0.0-0.4); Lymphocytes Absolute Auto 2.1 X10*3/uL (1.2-4.9); Mean Corpuscular HGB Conc 34.0 g/dl (31.0-35.0); Mean Corpuscular Hemoglobin 29.5 pg (27.0-33.0); Mean Corpuscular Volume 86.6 fL (80.0-98.0); NRBC Abs Auto 0.000 X10*3/uL (0.0-0.012); NRBC Pct Auto 0.0 /100WBC (0.0-0.2); Platelet Count 337 X10*3/uL (160-400); Red Blood Count 5.43 X10*6/uL (4.20-5.50); White Blood Count 18.2 X10*3/uL (4.8-10.8)
[2025-08-15 12:36] LABS: Alanine Aminotransferase 34 U/L (0-31); Albumin Level 5.7 g/dL (3.5-5.0); Alkaline Phosphatase 80 U/L (39-117); Anion Gap 17 (12-20); Aspartate Amino Transferase 26 U/L (5-31); Blood Urea Nitrogen 21 mg/dL (9-16); Calcium 10.8 mg/dL (8.4-10.2); Carbon Dioxide 22 mmol/L (22-29); Chloride 106 mmol/L (96-108); Creatinine Clr Calc Pharmacy 88.6; Estimated Glomerular Filt Rate > 60; Magnesium 1.9 mg/dL (1.6-2.6); Potassium 4.0 mmol/L (3.3-5.1); Sodium 141 mmol/L (135-145); Total Protein 9.2 g/dL (6.5-8.0)
[2025-08-15 12:39] LABS: Resp Syncy Virus RNA Qual PCR NEGATIVE (Negative); SARS COV2 PCR INHOUSE NEGATIVE (Negative)
[2025-08-15 13:44] LABS: Lipase 22 U/L (8-78)
[2025-08-15 17:24] LABS: Appearance Urine Clear; Glucose Urine UA Negative (Negative); PH 5.0 (5.0-9.0); Specific Gravity - Urine 1.010 (1.005-1.025)
[2025-08-15 17:35] VITALS: BP 129/86; PULSE 82; RESP 18; TEMP 36.5; O2SAT 94
== END 2025-08-15 17:38 | disposition home or self-care (01) ==
PROVIDERS: Physician Assistant Medical; Emergency Provider Emergency Medicine; PCP Internal Medicine
DX: K52.9 Noninfective gastroenteritis and colitis, unspecified (principal); R11.2 Nausea with vomiting, unspecified; R53.1 Weakness; Z03.818 Encounter for observation for suspected exposure to other biological agents ruled out
CPT/HCPCS: 74176; 80053; 81003; 83690; 83735; 84702; 85025; 87637; 96361; 96374; 96375; 99283; 99284; J1200; J2270; J2405; J2765

== ENCOUNTER → 2025-08-15 13:48 | Outpatient (BNV) | payer OTHER, SELFPAY | PROVIDERS: Emergency Provider Emergency Medicine; PCP Internal Medicine; Visit Provider Radiology Diagnostic Radiology | DX: R10.9 Unspecified abdominal pain (principal) | CPT/HCPCS: 74176 ==

== ENCOUNTER 2025-09-16 09:37 | Emergency (ER) | payer OTHER, SELFPAY ==
--- NOTE | 2025-09-16 | ECG_ITS ---
Test Reason : CHEST PAIN Blood Pressure : */* mmHG Vent. Rate : 98 BPM Atrial Rate : 98 BPM P-R Int : 138 ms QRS Dur : 72 ms QT Int : 336 ms P-R-T Axes : 32 20 22 degrees QTcB Int : 428 ms Normal sinus rhythm Normal ECG When compared with ECG of 29-Dec-2024 12:18, Vent. rate has increased by 38 bpm Referred By: Generic ED Physician Electronically Signed By: AGATA SCHULTE
--- NOTE | ~2025-09-16 | CT_ITS ---
EXAMINATION: CT CHEST ANGIOGRAPHY WITH IV CONTRAST, CT ABDOMEN PELVIS WITH IV CONTRAST HISTORY: Left chest pain, hypoxia R/O PE, abdominal pain COMPARISON: Correlation is made with the prior CT of the abdomen and pelvis dated 08/15/2025. TECHNIQUE: Helical CT scan of the chest was performed following administration of intravenous contrast. The contrast bolus was timed to optimally opacify the pulmonary arteries. Thin sections were obtained through the pulmonary arteries. Subsequently, images were obtained from the lung bases through the proximal thighs. Coronal and sagittal reformatted images were generated. 3D/MIP reconstructed images are also obtained and reviewed. This CT exam was performed with one or more of the following dose reduction techniques: automated exposure control, adjustment of the mA and/or kV according to patient size, use of iterative reconstruction technique. DLP: 956 mGy-cm CHEST: THYROID: The thyroid gland is unremarkable. PULMONARY ARTERIES: No intraluminal filling defects are identified within the pulmonary arteries to suggest pulmonary emboli. LUNGS: There is a 5 mm nodule in the left upper lobe (series 10, image 56). The lungs are otherwise clear. MEDIASTINUM: There is no mediastinal lymphadenopathy. LEN: There is no hilar lymphadenopathy. CARDIOVASCULATURE: The heart is normal in size. There is no pericardial effusion. The thoracic aorta is normal in caliber. DEGREE OF CORONARY CALCIFICATION: none PLEURA: There is no pleural effusion. No pneumothorax. MAIN AIRWAYS: The mainstem bronchi and proximal branches are patent. AXILLA: There is no axillary lymphadenopathy. ABDOMEN/PELVIS: LIVER: The liver is normal in size and contour. No liver mass is identified. The hepatic and portal veins are patent. GALL BLADDER / BILE DUCTS: The gallbladder is unremarkable. There is no intra or extrahepatic biliary ductal dilatation. SPLEEN: The spleen is normal in size. No focal splenic lesion is identified. PANCREAS: The pancreas is unremarkable in appearance. ADRENAL GLANDS: Within normal limits. KIDNEYS/RETROPERITONEUM: No renal calculi are identified. There is no hydronephrosis. No renal masses are identified. LYMPH NODES: No abdominal or pelvic lymphadenopathy. VASCULATURE: The abdominal aorta is normal in caliber. MESENTERY/PERITONEUM: No free air or free fluid. No masses. STOMACH: The stomach is unremarkable. SMALL BOWEL: The small bowel is normal in caliber. COLON: The colon is unremarkable. APPENDIX: Appendix is not seen, however no inflammatory changes are seen adjacent to the cecum . URINARY BLADDER/PELVIC ORGANS: The urinary bladder is unremarkable. The uterus is unremarkable. BONES / SOFT TISSUES: No suspicious bony or soft tissue abnormalities. CT/CT angio chest PE protocol IMPRESSION: 1. No evidence of pulmonary emboli. 5 mm left upper lobe pulmonary nodule. 2. Unremarkable contrast-enhanced CT of the abdomen and pelvis. Electronically signed by: Diego Haider MD 09/16/2025 12:26 PM [facility]
--- NOTE | ~2025-09-16 | CT_ITS ---
EXAMINATION: CT CHEST ANGIOGRAPHY WITH IV CONTRAST, CT ABDOMEN PELVIS WITH IV CONTRAST HISTORY: Left chest pain, hypoxia R/O PE, abdominal pain COMPARISON: Correlation is made with the prior CT of the abdomen and pelvis dated 08/15/2025. TECHNIQUE: Helical CT scan of the chest was performed following administration of intravenous contrast. The contrast bolus was timed to optimally opacify the pulmonary arteries. Thin sections were obtained through the pulmonary arteries. Subsequently, images were obtained from the lung bases through the proximal thighs. Coronal and sagittal reformatted images were generated. 3D/MIP reconstructed images are also obtained and reviewed. This CT exam was performed with one or more of the following dose reduction techniques: automated exposure control, adjustment of the mA and/or kV according to patient size, use of iterative reconstruction technique. DLP: 956 mGy-cm CHEST: THYROID: The thyroid gland is unremarkable. PULMONARY ARTERIES: No intraluminal filling defects are identified within the pulmonary arteries to suggest pulmonary emboli. LUNGS: There is a 5 mm nodule in the left upper lobe (series 10, image 56). The lungs are otherwise clear. MEDIASTINUM: There is no mediastinal lymphadenopathy. LEN: There is no hilar lymphadenopathy. CARDIOVASCULATURE: The heart is normal in size. There is no pericardial effusion. The thoracic aorta is normal in caliber. DEGREE OF CORONARY CALCIFICATION: none PLEURA: There is no pleural effusion. No pneumothorax. MAIN AIRWAYS: The mainstem bronchi and proximal branches are patent. AXILLA: There is no axillary lymphadenopathy. ABDOMEN/PELVIS: LIVER: The liver is normal in size and contour. No liver mass is identified. The hepatic and portal veins are patent. GALL BLADDER / BILE DUCTS: The gallbladder is unremarkable. There is no intra or extrahepatic biliary ductal dilatation. SPLEEN: The spleen is normal in size. No focal splenic lesion is identified. PANCREAS: The pancreas is unremarkable in appearance. ADRENAL GLANDS: Within normal limits. KIDNEYS/RETROPERITONEUM: No renal calculi are identified. There is no hydronephrosis. No renal masses are identified. LYMPH NODES: No abdominal or pelvic lymphadenopathy. VASCULATURE: The abdominal aorta is normal in caliber. MESENTERY/PERITONEUM: No free air or free fluid. No masses. STOMACH: The stomach is unremarkable. SMALL BOWEL: The small bowel is normal in caliber. COLON: The colon is unremarkable. APPENDIX: Appendix is not seen, however no inflammatory changes are seen adjacent to the cecum . URINARY BLADDER/PELVIC ORGANS: The urinary bladder is unremarkable. The uterus is unremarkable. BONES / SOFT TISSUES: No suspicious bony or soft tissue abnormalities. CT/CT abdomen pelvis w IV con IMPRESSION: 1. No evidence of pulmonary emboli. 5 mm left upper lobe pulmonary nodule. 2. Unremarkable contrast-enhanced CT of the abdomen and pelvis. Electronically signed by: Diego Haider MD 09/16/2025 12:[address] [facility]
--- NOTE | ~2025-09-16 | XR_ITS ---
EXAMINATION: XR CHEST 2 VIEWS HISTORY: chest pain COMPARISON: Comparison is made with the prior examination dated 12/29/2024. FINDINGS: PA and lateral views of the chest are submitted. The lungs are expanded and clear. There is no pleural effusion, pneumothorax, or pulmonary vascular congestion. The heart is normal in size. The bones are intact. XR/XR chest 2V IMPRESSION: No acute cardiopulmonary abnormality. Electronically signed by: Diego Haider MD 09/16/2025 10:08 AM [facility]
[2025-09-16 09:41] VITALS: BP 120/80; PULSE 113; O2SAT 89
[2025-09-16 09:42] VITALS: BMI 39.5
[2025-09-16 09:52] VITALS: BP 115/75; PULSE 103; RESP 18; TEMP 36.9; O2SAT 89
[2025-09-16 09:53] VITALS: O2SAT 92
--- NOTE | 2025-09-16 10:19 | ED.CHESTPAIN ---
HPI - Chest Pain General Chief Complaint: Chest Pain Stated Complaint: chest pressure, vomiting, tachy, fu symptoms Time Seen by Provider: 09/16/25 10:19 Source: patient Mode of arrival: EMS Limitations: no limitations History of Present Illness ED Provider: Dr. Velasquez Ruiz HPI narrative: 40-year-old female with a history of ovarian cancer with bilateral oophorectomy at age 15 (2000) who presents emergency department for evaluation of weakness, fever, chills, cough productive of yellow sputum with no blood x2 days and sudden onset of chest pain this morning at 08:30 hours. Patient points to her sternum and left anterior chest when asked to localize the pain. The pain is a pressure-like pain as if ?someone is sitting on her chest. The pain is worse with movement and with coughing but not with breathing. She states she feels short of breath and has dyspnea on exertion. The paramedics noted that the patient was hypoxic with a an O2 saturation of 89-90% on room air which improved with 2 L of oxygen via nasal cannula. Patient was given nitroglycerin and aspirin to chew. She states that her pain went from 10/10 to 8/10. Patient's cough has been productive for 2 days. She has had nausea and vomiting and had been able to hold down a minimal amount of food and fluid. She states she has had 5 loose diarrheal stools per day with no blood in the vomit or the diarrhea. She has noted urinary frequency but no dysuria. Patient states that she was supposed to take estrogen replacement but stopped this at least 1 year prior. She has not gone on a long trips. She has not swelling of her lower extremities Related Data Previous Rx's ?Medication ?Instructions ?Recorded cyclobenzaprine 5 mg tablet 5 mg PO Q8H PRN muscle pain #7 tabs 12/29/24 lidocaine 5 % topical patch 1 patch topical DAILY #15 ea 12/29/24 (Lidoderm) ondansetron 4 mg disintegrating 4 mg PO Q8H 3 days #9 tabs 08/15/25 tablet acetaminophen 500 mg tablet 1,000 mg (2 x 500 mg) PO Q6H PRN 09/16/25 (Tylenol Extra Strength) fever or pain #20 tabs amoxicillin 875 mg-potassium 1 tab PO Q12H 7 days #14 tabs 09/16/25 clavulanate 125 mg tablet ibuprofen 400 mg tablet 400 mg PO TID PRN fever or pain 09/16/25 #20 tabs morphine 15 mg immediate release 15 mg PO Q6H PRN pain 5 days #14 09/16/25 tablet tabs ondansetron 4 mg disintegrating 4 mg PO Q6H PRN nausea and 09/16/25 tablet vomiting #14 tabs Allergies Allergy/AdvReac Type Severity Reaction Status Date / Time No Known Allergies Allergy Verified 09/16/25 09:48 Review of Systems Review of Systems: Yes all other systems are reviewed and are negative [facility] Past Medical History [facility] Narrative: Social history: She smokes 4 cigarettes per day x6 years. She denies alcohol and drug use. Social History Social History Advance Directives: No Advance Directives Information Provided: Yes Physical Exam Vital Signs: Vital Signs: Last Vital Signs Temp 98.3 F 09/16/25 14:31 Pulse 77 09/16/25 14:31 Resp 16 09/16/25 14:31 BP 148/72 H 09/16/25 14:31 Pulse Ox 92 09/16/25 14:31 O2 Del Method Room Air 09/16/25 14:31 O2 Flow Rate 2 09/16/25 09:53 BMI result Body Mass Index 39.5 Vital signs revealed an elevated heart rate of 103, O2 saturation of 92% on 2 L of oxygen via nasal cannula. Exam: General: Awake, alert in no distress Head: Normocephalic, atraumatic EENT: PERRL, sclera and conjunctiva are normal, mouth posterior erythema, bilateral exudates, uvula midline, no tonsillar asymmetry, no trismus Neck: Supple, no adenopathy Lung: breath sounds symmetric, no wheezing, no rales and no rhonchi Chest: symmetric movement, moderate tenderness palpation of her sternum and left costochondral joints Heart: regular rate and rhythm, normal S1, S2 no murmurs or rubs Abdomen: soft, non-tender, nondistended, normal bowel sounds Back: no vertebral tenderness, no CVAT Extremities: no deformities, moves all extremities symmetrically, no edema Neuro: Awake, alert, oriented, normal speech, cranial nerves 2-12 intact, moves all extremities symmetrically Psych: Pleasant, cooperative Medications Administered Discontinued Medications Generic Name Dose Route Start Last Admin Trade Name Vicente PRN Reason Stop Dose Admin Amoxicillin/Clavulanate Potassium 875 mg 09/16/25 14:05 09/16/25 14:18 Amoxicillin/Potassium Clav 875 Mg Tablet PO 09/16/25 14:06 875 mg ONCE ONE Administration Diphenhydramine HCl 50 mg 09/16/25 10:44 09/16/25 11:16 Diphenhydramine Hcl 50 Mg/Ml Vial IVPUSH 09/16/25 10:45 50 mg ONCE ONE Administration Sodium Chloride 1,000 mls @ 999 mls/hr 09/16/25 10:44 09/16/25 12:17 Ns IV 09/16/25 11:44 Infused .Q1H1M STA Infusion Iohexol 85 ml 09/16/25 11:51 09/16/25 11:51 Iohexol 350 Mg/Ml 100 Ml Infus..Btl IV 09/16/25 11:52 85 ml ONCE ONE Administration Ketorolac Tromethamine 15 mg 09/16/25 10:44 09/16/25 11:17 Ketorolac Tromethamine 15 Mg/Ml Vial IVPUSH 09/16/25 10:45 15 mg ONCE ONE Administration Ondansetron HCl 4 mg 09/16/25 10:44 09/16/25 11:17 Ondansetron Hcl 4 Mg/2 Ml Vial IVPUSH 09/16/25 10:45 4 mg ONCE ONE Administration Medical Decision Making Medical Decision Making MDM Narrative: 40-year-old female with a history of ovarian cancer with bilateral oophorectomy at age 15 (2000) who presents emergency department for evaluation of weakness, fever, chills, cough productive of yellow sputum with no blood x2 days and sudden onset of chest pain this morning at 08:30 hours. Patient was given nitroglycerin and aspirin to chew. She states that her pain went from 10/10 to 8/10. Vital signs revealed an elevated heart rate of 103 in an O2 saturation of 89% on room air which improved to 92% on 2 L of oxygen via nasal cannula. Patient did have midsternal and left anterior chest wall tenderness otherwise exam was unremarkable. Differential diagnosis: ?Includes but is not limited to COVID-19, influenza, RSV, pneumonia, bronchitis, pulmonary embolism, malignancy, anemia, electrolyte abnormalities Course: 13:28 h My independent interpretation patient's laboratory evaluation is as follows: WBC elevated 18,300. Basic metabolic panel was normal. First troponin was below detectable limits and repeat 2 hour troponin was also below detectable limits which is reassuring suggesting that she does not have myocardial injury is the cause for chest pain. LFTs were normal., COVID-19, influenza and RSV tests were negative. Rapid strep was positive. Twelve EKG was unremarkable. Chest x-ray did not reveal any clear evidence for pneumonia. Given her remote history of ovarian cancer and chest pain with the hypoxia, I ordered a CT pulmonary angiogram PE protocol and a CT abdomen pelvis with IV contrast to rule out malignancy. Patient was treated with normal saline IV x1 L, Toradol 15 mg IV and Zofran 4 mg IV. Patient states that when she was 20 years old she had a CAT scan with IV contrast and it made her very warm and sweaty. She had no rash, facial swelling or shortness of breath. I told her this is most likely a normal reaction to the IV contrast dye but I did give her Benadryl 50 mg IV to see if I can blunt the effect of the IV contrast dye. 14:20 CT pulmonary angiogram PE protocol did not reveal any large pulmonary embolism or abnormality to explain the patient's symptoms. The patient is feeling better after the above treatment. Patient will be treated for acute bronchitis and streptococcal pharyngitis with Augmentin 875/125, 1 pill every 12 hours for 7 days. She was also given prescriptions for ibuprofen 400 mg q.6 hours PRN pain, acetaminophen 1000 mg q.6 hours PRN pain and for pain not relieved by these medications she was prescribed morphine 15 mg every 6 hours as needed for pain. Patient states she has not have any issues with addiction and I did tell her that I was giving her a small supply of morphine and that she could ask for a partial fill if she was concerned about addiction. Patient was also prescribed Zofran 4 mg ODT Q 6 hours as needed for nausea and vomiting. She was given printed and verbal instructions discharged home. Of note, the patient's mother states that her O2 saturation is usually between 90 and 92%. Differential Diagnosis Differential Diagnoses: The differential diagnosis associated with the presentation includes (See above) Admission/Observation Consideration of admission/observation: Escalation of care including admission/observation considered (Yes) Lab Data MDM Lab Attestation statement: I reviewed the patient's lab results. 09/16/25 10:20 09/16/25 10:20 Labs: Lab Results 09/16/25 09/16/25 09/16/25 Range/Units 10:19 10:20 12:49 WBC 18.3 H (4.8-10.8) X10*3/uL RBC 4.78 (4.20-5.50) X10*6/uL Hgb 13.8 (12.0-16.0) g/dl Hct 40.2 (37.0-47.0) % MCV 84.1 (80.0-98.0) fL MCH 28.9 (27.0-33.0) pg MCHC 34.3 (31.0-35.0) g/dl RDW 12.2 (11.0-16.0) % Plt Count 260 (160-400) X10*3/uL MPV 10.0 (9.4-12.3) fL Immature Gran % (Auto) 0.4 (0.0-0.4) % Neut % (Auto) 79.1 H (45-73) % Lymph % (Auto) 13.3 L (20-40) % [place] % (Auto) 6.8 (2-11) % Eos % (Auto) 0.1 (0-4) % Baso % (Auto) 0.3 (0-2) % Lymph # (Auto) 2.4 (1.2-4.9) X10*3/uL [place] # (Auto) 1.2 (0.1-1.2) X10*3/uL Eos # (Auto) 0.0 (0.0-0.4) X10*3/uL Baso # (Auto) 0.1 (0.0-0.2) X10*3/uL Abs Immat Gran (auto) 0.08 H (0.00-0.03) X10*3/uL Absolute Neuts (auto) 14.5 H (2.0-8.3) x10*3/uL Absolute Nucleated RBC 0.000 (0.0-0.012) X10*3/uL Nucleated RBC % (auto) 0.0 (0.0-0.2) /100WBC PT 16.6 H (11.2-13.5) SEC INR 1.4 H (0.9-1.1) APTT 36.2 H (26.7-34.1) SEC Sodium 139 (135-145) mmol/L Potassium 4.0 (3.3-5.1) mmol/L Chloride 101 (96-108) mmol/L Carbon Dioxide 25 (22-29) mmol/L Anion Gap 17 (12-20) BUN 10 (9-16) mg/dL Creatinine 0.88 (0.5-1.4) mg/dL Estim Creat Clear Calc 94.7 Estimated GFR > 60 Random Glucose 103 (60-115) mg/dL Calcium 10.4 H (8.4-10.2) mg/dL Total Bilirubin 0.7 (0.0-1.0) mg/dL Direct Bilirubin 0.3 (0.0-0.5) mg/dL AST 18 (5-31) U/L ALT 19 (0-31) U/L Alkaline Phosphatase 62 (39-117) U/L Troponin I High Sens < 2.7 < 2.7 (<3.5-17.0) ng/L Total Protein 8.8 H (6.5-8.0) g/dL Albumin 5.0 (3.5-5.0) g/dL Influenza Type A (PCR) NEGATIVE (Negative) Influenza Type B (PCR) NEGATIVE (Negative) RSV RNA Qual (PCR) NEGATIVE (Negative) SARS-CoV-2 RNA (RT-PCR) NEGATIVE (Negative) S. pyogenes GrpA MARIANNE Positive A (Negative) Independent Interpretation I performed an independent interpretation of an: EKG Interpretation: My independent interpretation patient's 12 EKG done on 09/16/2025 at 09:47 hours is as follows: Normal sinus rhythm rate of 93, normal MS interval, QRS duration QTC interval, no ST segment elevation, no ST segment depression, no PACs, no PVCs. This has a normal EKG. My independent interpretation patient's one-view chest x-ray is as follows: No acute disease Radiology Impression Discussion of test interpretation with radiology: I have reviewed the radiologist's reading. Radiologist Impression: XR chest 2V IMPRESSION: No acute cardiopulmonary abnormality. Electronically signed by: Diego Haider MD 09/16/2025 10:[address] angio chest PE protocol and CT abdomen pelvis with contrast IMPRESSION: 1. No evidence of pulmonary emboli. 5 mm left upper lobe pulmonary nodule. 2. Unremarkable contrast-enhanced CT of the abdomen and pelvis. Electronically signed by: Diego Haider MD 09/16/2025 12:26 PM Discharge Plan Discharge Clinical Impression: Acute bronchitis, Acute streptococcal pharyngitis, Chest pain Patient Disposition: Home, Self-Care Instructions: Strep Throat (ED), Acute Bronchitis (ED), Pulmonary Nodules (ED) Additional Instructions: Your blood work [place] [id number] has consistent with a an infection. Your EKG was unremarkable. Your troponin (marker of heart attack) was below detectable limits and your 2 hour repeat troponin was also below detectable limits suggesting that your chest pain is not caused by heart damage/heart attack pain. Your COVID-19, RSV and influenza tests were negative. Your rapid strep test was positive for Streptococcus and your exam is consistent with strep throat. You have a productive cough and I am concerned that you may also have a bacterial bronchitis (infection of your breathing tubes). The CT scan of your chest with IV contrast did not reveal any blood clots in your lung or evidence of pneumonia. The CT scan of your abdomen was also normal. Take Augmentin (amoxicillin/clavulanate) 875/125, 1 pill every 12 hours for 7 days-this will treat strep throat and bacterial bronchitis Take ibuprofen 400 mg pills, 1 pills every 6 hours as needed for pain. Take Tylenol (acetaminophen) 500 mg, 2 pills every 6 hours as needed for pain. For pain not relieved by ibuprofen or Tylenol take morphine 15 mg pills, 1 pill every 6 hours as needed for pain. This medication will make you sleepy, do not drive or work while taking this medication. Morphine is a narcotic medication and can be addicting. If you are concerned about addiction you can ask the pharmacist for less pills or do not get this prescription filled. Take Zofran (ondansetron) ODT 4 mg pills, 1 pill dissolved in your mouth every 8 hours as needed for nausea and vomiting. Follow-up with your doctor in 2 days. Please return to the emergency department if your symptoms get worse or if you develop any symptoms that are concerning to you. The radiologist did reveal a 5 mm left upper lobe pulmonary nodule. Given your smoking history, I want you to follow up with your primary care doctor to discuss this nodule in you may need a repeat CT scan of your chest in 3-6 months depending on your doctor's concerned for possible cancer. Pulmonary nodules can be caused by inflammation of your lungs and sometimes go away, however sometimes they can be a sign of early lung cancer. CT angio chest PE protocol IMPRESSION: 1. No evidence of pulmonary emboli. 5 mm left upper lobe pulmonary nodule. 2. Unremarkable contrast-enhanced CT of the abdomen and pelvis. Electronically signed by: Diego Haider MD 09/16/2025 12:26 PM EST Prescriptions: New amoxicillin-pot clavulanate 875-125 mg tablet 1 tab PO Q12H 7 Days Qty: 14 0RF ondansetron 4 mg tablet,disintegrating 4 mg PO Q6H PRN (Reason: nausea and vomiting) Qty: 14 0RF ibuprofen 400 mg tablet 400 mg PO TID PRN (Reason: fever or pain) Qty: 20 0RF acetaminophen [Tylenol Extra Strength] 500 mg tablet 1,000 mg PO Q6H PRN (Reason: fever or pain) Qty: 20 0RF morphine 15 mg tablet 15 mg PO Q6H PRN (Reason: pain) 5 Days Qty: 14 0RF Rx Instructions: Partial Fill upon patient request. No Action cyclobenzaprine 5 mg tablet 5 mg PO Q8H PRN (Reason: muscle pain) Qty: 7 0RF lidocaine [Lidoderm] 5 % adhesive patch,medicated 1 patch topical DAILY Qty: 15 0RF Rx Instructions: leave on most painful area for up to 12 hrs ondansetron 4 mg tablet,disintegrating 4 mg PO Q8H 3 Days Qty: 9 0RF Interventions: ED Discharge Assessment Last Done: 09/16/25 14:31 Discharge Date/Time: 09/16/25 14:31 Print Language: [place]
[2025-09-16 10:27] LABS: MANUAL DIFF FLAG NO
[2025-09-16 10:28] LABS: Hematocrit 40.2 % (37.0-47.0); Hemoglobin 13.8 g/dl (12.0-16.0); Imm Gran Abs Auto 0.08 X10*3/uL (0.00-0.03); Imm Gran Pct Auto 0.4 % (0.0-0.4); Lymphocytes Absolute Auto 2.4 X10*3/uL (1.2-4.9); Mean Corpuscular HGB Conc 34.3 g/dl (31.0-35.0); Mean Corpuscular Hemoglobin 28.9 pg (27.0-33.0); Mean Corpuscular Volume 84.1 fL (80.0-98.0); NRBC Abs Auto 0.000 X10*3/uL (0.0-0.012); NRBC Pct Auto 0.0 /100WBC (0.0-0.2); Platelet Count 260 X10*3/uL (160-400); Red Blood Count 4.78 X10*6/uL (4.20-5.50); White Blood Count 18.3 X10*3/uL (4.8-10.8)
[2025-09-16 10:32] LABS: INTERNATIONAL NORM RATIO 1.4 (0.9-1.1); Prothrombin Time 16.6 SEC (11.2-13.5)
[2025-09-16 10:35] LABS: Strep A Nucleic Acid Positive (Negative)
[2025-09-16 10:39] LABS: Anion Gap 17 (12-20); Blood Urea Nitrogen 10 mg/dL (9-16); Calcium 10.4 mg/dL (8.4-10.2); Carbon Dioxide 25 mmol/L (22-29); Chloride 101 mmol/L (96-108); Creatinine Clr Calc Pharmacy 94.7; Estimated Glomerular Filt Rate > 60; Potassium 4.0 mmol/L (3.3-5.1); Sodium 139 mmol/L (135-145)
[2025-09-16 10:49] LABS: Troponin-I High Sensitivity < 2.7 ng/L (<3.5-17.0)
[2025-09-16 11:15] LABS: Alanine Aminotransferase 19 U/L (0-31); Albumin Level 5.0 g/dL (3.5-5.0); Alkaline Phosphatase 62 U/L (39-117); Aspartate Amino Transferase 18 U/L (5-31); Total Protein 8.8 g/dL (6.5-8.0)
[2025-09-16 11:27] LABS: Resp Syncy Virus RNA Qual PCR NEGATIVE (Negative); SARS COV2 PCR INHOUSE NEGATIVE (Negative)
[2025-09-16 11:47] LABS: Partial Thromboplastin Time 36.2 SEC (26.7-34.1)
[2025-09-16] MEDS: iohexoL 350 MG/ML 100 ML INFUS..BTL 85 ML IV (11:51)
--- OUTSIDE RECORDS SUMMARY | 2025-09-16 12:21 | XMS_ITS | Data Portability ---
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 Plan of Treatment Reminders Order Date Submit Date Provider Last Modified By Organization Details Last Modified Time Details Appointments None recorded. Lab varicella zoster virus IgG Ab, QN, IA, serum 2023 024 [facility]), [address] [place], [address], 4 12:06:12 measles + mumps + rubella virus IgG panel, QN, serum or plasma 2023 024 [facility]), [address] [place], [address], 4 14:07:03 hepatitis B surface Ab, quantitativ e, serum 2023 024 [facility]), [address] [place], [address], 4 16:07:00 Mycobacteri um tuberculosi s stimulated gamma interferon, qual, blood 2023 024 [facility]), [address] [place], [address], 4 06:08:00 urinalysis, dipstick 2022 023 [email or web address] [address], [address] [place], [address], 16:48:32 test, urine 2022 023 [email or web address] [address], [address] [place], [address], 16:48:33 vaginal pathogens panel, ARTUR+probe, vaginal fluid 2022 023 [facility] [place], [address], 22:06:14 culture, urine 2022 023 [facility] [address] [place], [address], 06:08:09 Referral None recorded. Procedures None recorded. Surgeries None recorded. Imaging None recorded. Medication Orders None recorded. Patient TargetsNo targets recorded. Patient Instructions Encounter Date Encounter Id Patient Instructions Last Modified By Organization Details Last Modified Time 08/06/2023 [id number] vaginitis: care instructions [email or web address] Not available 08/06/2023 [...] culture, routine FINAL REPORT Not Available [facility] ([facility]) [address] [facility], [place], [address], 08/08/2023 06:08:09 08/06/20 23 08/07/2023 URINE CULTU RE, GERTRUDEI NE result 1 NO GROWTH Not Available [facility] ([facility]) [address] [facility], [place], [address], 08/08/2023 06:08:09 08/06/20 23 08/08/2023 NUSWA B VAGIN ITIS PLUS (VG+) atopobium vaginae HIGH - 2 score abnormal Not Available [facility] ([facility]) [address] [facility], [place], [address], 08/08/2023 22:06:14 08/06/20 23 08/08/2023 NUSWA B VAGIN ITIS PLUS (VG+) bvab 2 HIGH - 2 score abnormal Not Available [facility] ([facility]) [address] [facility], [place], [address], 08/08/2023 22:06:14 08/06/20 23 08/08/2023 NUSWA B [...] Drug Admin istra tion. Not Available [facility] ([facility]) [address] [facility], [place], [address], 08/08/2023 22:06:14 08/06/20 23 08/08/2023 NUSWA B VAGIN ITIS PLUS (VG+) constance albicans, ARTUR POSITI VE negati ve abnormal Not Available [facility] ([facility]) [address] [facility], [place], [address], 08/08/2023 22:06:14 08/06/2008/08/2023 NUSWA B VAGIN ITIS PLUS (VG+) constance glabrata, ARTUR NEGATI VE negati ve Not Available [facility] ([facility]) [address] [facility], [place], [address], 08/08/2023 22:06:14 08/06/20 23 08/08/2023 NUA B VAGIN ITIS PLUS (VG+) trich vag by ARTUR NEGATI VE negati ve Not Available [facility] ([facility]) [address] [place], [address], 08/08/2023 22:06:14 08/06/20 23 08/08/2023 NUSWA B VAGIN ITIS PLUS (VG+) chlamydia trachomatis, ARTUR NEGATI VE negati ve Not Available [facility] ([facility]) [address] [place], [address], 08/08/2023 22:06:14 08/06/20 23 08/08/2023 NUSWA B VAGIN ITIS PLUS (VG+) neisseria gonorrhoeae, ARTUR NEGATI VE negati ve Not Available [facility] ([facility]) [address] [place], [address], 08/08/2023 22:06:14 08/06/20 23 08/06/2023 pregn thom test, urine Unknown Analyte negati ve Not [facility] [address] [place], [address], 08/06/2023 15:30:00 08/06/2008/06/2023 pregn thom test, urine Unknown Analyte yes Not Available [address] [place], [address], 08/06/2023 15:30:00 08/06/20 23 08/06/2023 urina lysis , dipst ick Unknown Analyte Yellow Not Available [address] [place], [address], 08/06/2023 15:29:53 08/06/2008/06/2023 urina lysis , dipst ick Unknown Analyte Clear Not Available [address] [place], [address], 08/06/2023 15:29:53 08/06/20 23 08/06/2023 urina lysis , dipst ick Unknown Analyte Negati ve Not Available [facility] [address] [place], [address], 08/06/2023 15:29:53 08/06/20 23 08/06/2023 urina lysis , dipst ick Unknown Analyte Negati ve Not Available [facility] [address] [place], [address], 08/06/2023 15:29:53 08/06/20 23 08/06/2023 urina lysis , dipst ick Unknown Analyte Negati ve Not Available [facility] [address] [place], [address], 08/06/2023 15:29:53 08/06/20 23 08/06/2023 urina lysis , dipst ick Unknown Analyte 1.025 Not Available [place] [address] [place], [address], 08/06/2023 15:29:53 08/06/2008/06/2023 urina lysis , dipst ick Unknown Analyte Trace- intact Not Available [facility] [address] [place], [address], 08/06/2023 15:29:53 08/06/2008/06/2023 urina lysis , dipst ick Unknown Analyte 5.5 Not [facility] [place], [address], 08/06/2023 15:29:53 08/06/2008/06/2023 urina lysis , dipst ick Unknown Analyte Negati ve Not Available [facility] [address] [place], [address], 08/06/2023 15:29:53 08/06/20 23 08/06/2023 urina lysis , dipst ick Unknown Analyte 0.2 E.U./d L Not Available [facility] [address] [place], [address], 08/06/2023 15:29:53 08/06/2008/06/2023 urina lysis , dipst ick Unknown Analyte Negati ve Not Available [facility] [address] [place], [address], 08/06/2023 15:29:53 08/06/20 23 08/06/2023 urina lysis , dipst ick Unknown Analyte Negati ve Not Available [facility] [address] [place], [address], 08/06/2023 15:29:53 02/05/20 24 02/06/2024 VARIC CHAD- [...] stage of disea se. Not Available [facility] ([facility]) [address] [facility], [place], [address], 02/06/2024 12:06:12 02/05/20 24 02/06/2024 MEASL ES/MU MPS/R UBELL A IMMUN ITY rubella antibodies, IgG 1.13 index immune >0.99 Non-i mmune <0.90 Equiv ocal 0.90 - 0.99 Immun e >0.99 Not Available [facility] ([facility]) [address] [place], [address], 02/06/2024 14:07:03 02/05/20 24 02/06/2024 MEASL ES/MU [...] tion is suspe cted. Not Available [facility] ([facility]) [address] [facility], [place], [address], 02/06/2024 14:07:03 02/05/20 24 02/06/2024 MEASL ES/MU MPS/R UBELL A IMMUN ITY mumps abs, IgG 88.4 AU/mL immune >10.9 Negat lavelle <9.0 Equiv ocal 9.0 - 10.9 Posit lavelle >10.9 A posit lavelle resul t gener ally indic ates past expos ure to Mumps virus or previ ous vacci natio n. Not Available [facility] ([facility]) [address] [facility], [place], [address], 02/06/2024 14:07:03 02/05/20 24 02/06/2024 HEPAT ITIS [...] to: Immun ity >10 Not Available [facility] ([facility]) [address] [facility], [place], [address], 02/06/2024 16:07:00 02/05/20 24 02/07/2024 QUANT IFERO N-TB GOLD PLUS quantiferon incubation INCUBA TION PERFOR MED. Not Available [facility] ([facility]) [address] [place], [address], 02/08/2024 06:08:00 02/05/20 24 02/07/2024 QUANT IFERO [...] ol for the test. Not Available [facility] ([facility]) [address] [facility], [place], [address], 02/08/2024 06:08:00 02/05/20 24 02/07/2024 QUANT IFERO N-TB GOLD PLUS quantiferon TB1 Ag value 0.03 IU/mL Not Available [facility] ([facility]) [address] [place], [address], 02/08/2024 06:08:00 02/05/2002/07/2024 QUANT IFERO N-TB GOLD PLUS quantiferon TB2 Ag value 0.03 IU/mL Not Available [facility] ([facility]) [address] [place], [address], 02/08/2024 06:08:00 02/05/2002/07/2024 QUANT IFERO N-TB GOLD PLUS quantiferon nil value 0.02 IU/mL Not Available [facility] ([facility]) [address] [place], [address], 02/08/2024 06:08:00 02/05/20 24 02/07/2024 QUANT IFERO N-TB GOLD PLUS quantiferon mitogen value >10.00 IU/mL Not Available [facility] ([facility]) [address] [place], [address], 02/08/2024 06:08:00 02/05/2002/07/2024 QUANT IFERO N-TB GOLD [...] y metho dolog y Not Available [facility] ([facility]) [address] [facility], [place], [address], 02/08/2024 06:08:00 Result Notes None recorded. Problems Name Problem SNOMED Code Status Onset Date Resolution Date Notes Provider Name and Address Organization Details Recorded Time Malignant neoplasm of ovary [id number] Active Qing christensen PA - [facility] [...] Updated DateTime 3 157.48 cm 42.1 kg/m2 645938. 25 g 16 /min 98.3 [degF] 75 /min 95 % 112/77 mm[Hg] Qing Lopez PA - [facility] 3 15:32:04 Social History Question Answer Notes LastModified by OrganEmissary Details LastModified Time Tobacco Smoking Status Never Smoker Qing christensen, PA - [facility] 08/06/2023 15:28:40 Which Illicit Or Recreational Drugs Have You Used? Marijuana [email or web address] Information not available 08/06/2023 Have You Had A Flu Shot This Season? No [email or web address] Information not available 08/06/2023 What Was The Date Of Your Most Recent Tobacco Screening? 08/06/2023 Information not available 08/06/2023 Have You Recently Traveled Abroad? No [email or web address] Information not available 08/06/2023 Sex: Unknown Functional Status Question Answer Note LastModified by Organizat ion Details LastModified Time Do you use any illicit or recreational drugs? Yes [email or web address] Information not available 08/06/2023 What is your level of alcohol consumption? None [email or web address] Information not available 08/06/2023 Mental Status None recorded. Family History Relationship Description Onset Age of this Age Resolved Age Notes LastModified by Organization Details LastModified Time Father No current problems or disability [email or web address] Not available 08/06 15:28:05 Mother No current problems or disability [email or web address] Not available 08/06 15:28:05 Medical History No [...] ICD10 Code Diagnosis IMO Codes Diagnosis Note [id number] [address] [place] [address] 01/31/2018 13:27:13 01/31/2018 15:19:12 [id number] [place] [address] [place] [address] 08/06/2023 14:21:13 08/06/2023 16:49:24 Acute vaginitis 76097703 N76.0 vaginitis is soreness or infection of [...] your sex partner(s) must be treated too. [id number] [facility] TOURE [address] [address] 02/05/2024 11:16:40 02/05/2024 13:41:22 History and physical examination, occupation 000415077 Z02.1 Health Concerns Section Related Observation LastModified by Organization Detai ls LastModified Time None Recorded Concern Status LastModified by Organization Details LastModified Time None Recorded Advance Directives Directive None Recorded Payers Insurance Date Sequence Insurance Name Policy Number Policy Juarez Covered Member ID Juarez Member ID Guarantor Name 02/05/2024 [facility] E SCREEN E SCREEN Brokolynn Butt 02/25/2024 1 [facility] [email or web address] [facility] ([id number]) [id number] Brooklynn Jones Butt [id number] Brooklynn Butt Notes Date Note Type [...] Rolon NP [address] [place], [address], PA - [facility] 08/06/2023 16:59:21 OBGyn Episode No OBEpisode recorded.
--- OUTSIDE RECORDS SUMMARY | 2025-09-16 12:22 | XMS_ITS | Patient Health Record ---
Author Organization [facility] Address [address] [place] [address] Support Name Relationship Address Phone BernardoBrooklynn Guarantor Unknown [phone] Allergies Allergen (clinical drug ingredient) Drug/Non Drug [...] Insured Coverage Start Date Coverage End Date [place] ATT CLAIMS [address] [place] [address] [id number] Brooklynn Chang Self - patient is the [...]
[2025-09-16 13:27] LABS: Troponin-I High Sensitivity < 2.7 ng/L (<3.5-17.0)
[2025-09-16 14:00] VITALS: BP 148/72; PULSE 77; RESP 16; TEMP 36.8; O2SAT 92
[2025-09-16 14:31] VITALS: BP 148/72; PULSE 77; RESP 16; TEMP 36.8; O2SAT 92
== END 2025-09-16 14:31 | disposition home or self-care (01) ==
PROVIDERS: Emergency Provider Emergency Medicine Emergency Medical Services; PCP Internal Medicine
DX: J20.9 Acute bronchitis, unspecified (principal); J02.0 Streptococcal pharyngitis; R07.9 Chest pain, unspecified; Z85.43 Personal history of malignant neoplasm of ovary; Z79.899 Other long term (current) drug therapy; Z03.818 Encounter for observation for suspected exposure to other biological agents ruled out
CPT/HCPCS: 36415; 71046; 71275; 74177; 80048; 80076; 84484; 85025; 85610; 85730; 87637; 87651; 93005; 96361; 96374; 96375; 99284; 99285; J1200; J1885; J2405; Q9967

== ENCOUNTER → 2025-09-16 09:47 | Outpatient (BNV) | payer OTHER, SELFPAY | PROVIDERS: Emergency Provider Emergency Medicine Emergency Medical Services; PCP Internal Medicine; Visit Provider Internal Medicine | DX: R07.9 Chest pain, unspecified (principal) | CPT/HCPCS: 93010 ==

== ENCOUNTER → 2025-09-16 10:02 | Outpatient (BNV) | payer OTHER, SELFPAY | PROVIDERS: Emergency Provider Emergency Medicine Emergency Medical Services; PCP Internal Medicine; Visit Provider Radiology Diagnostic Radiology | DX: R10.84 Generalized abdominal pain (principal); R11.2 Nausea with vomiting, unspecified; R91.1 Solitary pulmonary nodule; R09.02 Hypoxemia; R07.9 Chest pain, unspecified | CPT/HCPCS: 71046; 71275; 74177 ==